=== PATIENT | female | born 1930 | race Caucasian/White ===

== ENCOUNTER 2016-05-03 08:42 | Inpatient (IN) | payer MEDICARE, OTHER ==
[2016-05-03] VITALS (8 sets, daily range): BP systolic 113–200; BP diastolic 40–76
[~2016-05-03] VITALS: Ht 170.2 cm; Wt 83.9 kg
--- NOTE | ~2016-05-03 | DS ---
[place], [place] DISCHARGE SUMMARY NAME: WILMA DIAZ [facility] #: [id number] UNIT #: [id number] ROOM: 524 DOCTOR: BRENDON SOLER MD BIRTHDATE: [birth year] DOS: 05/08/2016 DIAGNOSES: 1. Sepsis with negative blood cultures. 2. Bilateral upper lobe pneumonia, postobstructive. 3. Tracheomalacia status post bronchoscopy with negative bronchial cultures. 4. Urinary tract infection with Escherichia coli. 5. Failure to thrive. 6. Benign hypertension. 7. Mixed hyperlipidemia. 8. Alzheimer dementia, late onset. 9. Frailty with multiple falls and history of subdural hematoma. DISCHARGE MEDICATIONS: Will be Levaquin 500 mg daily for 7 days, breathing treatments with DuoNeb q.4 hours, Aricept 23 mg at bedtime, lisinopril 10 daily, diclofenac 50 mg daily, Namenda XR 28 mg daily, hydrochlorothiazide 12.5 mg daily, guaifenesin 600 mg b.i.d., metformin 500 mg daily, vitamin D 3000 units daily, B12 500 mcg daily, Ceftin 250 twice a day for 7 days, and Levaquin 500 mg daily for 7 days. HOSPITAL COURSE: This patient is an 85-year-old comes in with complaints of difficulty breathing. After admission, the patient was placed on IV antibiotics, breathing treatments. She was septic. Blood cultures were sent. A CT of the chest showed postobstructive pneumonia and tracheomalacia at that time, Dr. Graham was consulted and the patient was scheduled for a bronchoscopy. Bronch cultures so far have come back negative. The patient is much improved with her current treatment plan. She still has bronchospasm, it should resolve slowly. We should be quite careful in giving this patient, hydrochlorothiazide, metformin, and diclofenac, which are all nephrotoxic meds and so please check her basic metabolic panel every 3 months to make sure that her kidney functions are not deteriorating. Right now, she is going to be placed on antibiotics. Chest x-ray shows complete clearing of the pneumonia and the sputum cultures are negative. Urine culture showed bacterial overgrowth of E. coli and for which the patient is on appropriate antibiotics. The patient is overall stable, so the plan is to discharge her to the halfway today. [place], [place] DISCHARGE SUMMARY NAME: WILMA DIAZ UNIT #: [id number] ROOM: 524 DOCTOR: BRENDON SOLER MD BIRTHDATE: [birth year] BRENDON SOLER MD CM:LAN [phone] BRENDON SOLER MD 05/08/16 0957 interface
--- NOTE | ~2016-05-03 | PR ---
[place], [place] PROGRESS NOTE NAME: WILMA DIAZ [facility] #: [id number] UNIT #: [id number] ROOM: 524 DOCTOR: ROSI CLAY MD,RUBY BIRTHDATE: [birth year] DOS: 05/08/2016 PULMONARY PROGRESS NOTE SUBJECTIVE: The patient was seen and examined on 05/08/2015, has a bronchoscopy done for the patient couple of days ago, progressive resolution, improvement in the respiratory symptoms were noted. Denied symptoms of chest pain. Currently sitting on the chair comfortably. PHYSICAL EXAMINATION: VITAL SIGNS: Showed normal temperature, respiratory rate 20, heart rate 71, blood pressure of 64/84. The pulse oxygen saturation of the patient noted on room air 97% saturation. HEENT: No acute change. NECK: Supple. CARDIOVASCULAR SYSTEM: S1, S2 is audible. LUNGS: Exam of the lungs for the patient noted without any crackle or rhonchi. Scattered expiratory wheezing. ABDOMEN: Soft, nontender. LABORATORY DATA: Culture of the sputum of the patient noted normal luke. IMPRESSION: 1. The patient with acute tracheobronchitis, suspect acute pneumonia with superimposed mucus plugging for this patient causing atelectasis of the lung as well. 2. Acute exacerbation of bronchial asthma, tracheomalacia gradually improving. PLAN OF TREATMENT: Tapering dose of prednisone, oral antibiotics and the patient could be discharged to the nursing facility for further continued medical management and completion of treatment. The discharge planning was discussed with Dr. Shaye Oates. RUBY ARANDA MD CM:PNTRANS [id number] RUBY CLAY MD 05/09/16 0631 interface
--- NOTE | ~2016-05-03 | PR ---
[place], [place] PROGRESS NOTE NAME[facility] [id number] UNIT #: [id number] ROOM: 524 DOCTOR: ROSI CLAY MD,RUBY BIRTHDATE: [birth year] DOS: 05/06/2016 PULMONARY PROGRESS NOTE SUBJECTIVE: The patient was still noted with severe nonproductive cough which has been noted without any sputum expectoration, noted n.p.o. past midnight. Bronchoscopy planned for today. She has now been noted with symptoms of chest pain, was continued on antibiotics, on the bronchodilator treatments. OBJECTIVE: VITAL SIGNS: Normal temperature, respiratory rate 18, heart rate 66, blood pressure 122/70. Intake is 960, the output was 700 mL, pulse oxygen saturation on 2 L nasal cannula was 94% saturation. HEENT: Age-related changes with moderate obesity. NECK: Supple. CARDIOVASCULAR SYSTEM: S1, S2 audible. LUNGS: Exam of the lungs for this patient noted with moderate decreased breath sounds without any wheeze or crackles. ABDOMEN: Soft, nontender. IMPRESSION: 1. Acute tracheobronchitis with perihilar infiltration. 2. Acute bacterial pneumonia suspected with the tracheobronchitis. PLAN: For this patient, proceed with the bronchoscopy as planned. Further changes or modification of treatment if necessary will be ordered after bronchoscopy. PT/PTT for this patient that were done yesterday was noted normal. RUBY ARANDA MD CM:PNTRANS [id number] RUBY CLAY MD 06/13/16 1100 interface
--- NOTE | ~2016-05-03 | WRIGHTHP ---
[place], [place] PATIENT HISTORY AND PHYSICAL EXAM NAME: WILMA DIAZ [facility] #: [id number] UNIT #: [id number] ROOM: 524 DOCTOR: BRENDON SOLER MD BIRTHDATE: [birth year] DOS: HISTORY OF PRESENT ILLNESS: This patient is 85 years old. The patient is a resident of [facility], was brought in with cough. The patient has been on antibiotics as an outpatient and was not getting any better, oxygen saturation was running low, was sent out upon daughter's request. The patient states that she has a terrible cough, but is unable to cough up any mucus, has mild shortness of breath. Denies having any chest pains or palpitations, does not have any fever or chills. PAST MEDICAL HISTORY: Significant for: 1. Last hospitalization in 06/2015 with renal failure. 2. Benign hypertension. 3. Mixed hyperlipidemia. 4. Alzheimer dementia, late onset. 5. History of frailty with multiple falls and subdural hematoma in the past. MEDICATIONS: Which she is on are breathing treatments, penicillin which was started on 05/02/2016, vitamin D, vitamin B12, Arthrotec, donepezil, guaifenesin, hydrochlorothiazide, lisinopril, loratadine, Namenda, and metformin. SOCIAL HISTORY: Nonsmoker, does not use any alcohol. She has been in a prison for about 6 months since 06/2015. PHYSICAL EXAMINATION: GENERAL: The patient is awake and alert, oriented to place and person. VITAL SIGNS: Graphic trend shows that she is afebrile. Pressure is 124/59, pulse of 58, respirations 18, temperature 97.6. LUNGS: Diminished breath sounds, scattered rhonchi. HEART: Regular. ABDOMEN: Obese, soft. EXTREMITIES: Showing some evidence of lymphedema. ASSESSMENT AND PLAN: 1. The patient who presents with cough, diagnosis asmatoid wheeze. The patient is placed on IV steroids, breathing treatments and IV antibiotics. CT of the chest will be ordered to rule out underlying pneumonia. 2. Benign hypertension, controlled. The patient's hydrochlorothiazide will be held because of underlying renal insufficiency. 3. Sepsis with lactic acid elevation. Blood cultures and sputum cultures were sent, awaiting report. 4. Type 2 diabetes mellitus, noninsulin dependent, on metformin. BUN and creatinine is already on the high side, we will need to continue to see whether this worsens any further. If it does then we will have to discontinue metformin. Right now, metformin and ADA diet, and blood sugars to be checked twice daily. 5. Positive nitrite and leukocyte esterase in the urine. Urine culture was sent in the ER, awaiting results. Adjustments in antibiotics pending on the results. [place], [place] PATIENT HISTORY AND PHYSICAL EXAM NAME: WILMA DIAZ UNIT #: [id number] ROOM: 524 DOCTOR: BRENDON SOLER MD BIRTHDATE: [birth year] 6. Chronic renal failure, GFR of 40, stage 3 renal failure, should avoid nephrotoxic medications including hydrochlorothiazide and nonsteriodals. BRENDON SOLER MD CM:HISPHYS:PATIENT HISTORY AND PHYSICAL EXAMINATION [id number] BRENDON SOLER MD 06/13/16 1059 interface
--- NOTE | ~2016-05-03 | PR ---
[place], [place] PROGRESS NOTE NAME: WILMA DIAZ UNIT #: [id number] ROOM: 524 DOCTOR: RUBY PARKER MD BIRTHDATE: [birth year] DOS: 05/07/2016 PULMONARY FOLLOWUP NOTE SUBJECTIVE: She had bronchoscopy done yesterday, has been noted with significant reduction in symptoms of cough, which has been previously noted. She denies symptoms of chest pain. Denies symptoms of abdominal pain, shortness of breath and wheezing was also noted decreased. OBJECTIVE: VITAL SIGNS: Show normal temperature, respiratory rate 20, heart rate 107, blood pressure 122/70 this morning recorded. The pulse oxygen saturation on room air was 95% saturation. HEENT: Showed no acute change. NECK: Supple. CARDIOVASCULAR: S1, S2 is audible. LUNGS: Noted moderate reduction in the breath sounds bilaterally with occasional wheezing. There were no crackles. ABDOMEN: Soft, nontender. LABORATORY DATA: Gram stain of the bronchial washing yesterday shows moderate white blood cells, few epithelial cells, few gram-negative bacilli and few gram-positive cocci in pairs and clusters. Preliminary culture showing normal luke and final culture results were pending. Chest x-ray 1 view which was done this morning shows improvement in the infiltration of the lungs. IMPRESSION: The patient with area of atelectasis secondary to mucous impaction with acute asthmatic bronchitis for the patient and tracheobronchitis with retained secretion of the major airways. PLAN OF TREATMENT: No changes in plan of management at this time. Continue the patient's current therapy. Plan of care as previously. Usual care, other supportive plan of management and care. All other treatment as in progress. [place], [place] PROGRESS NOTE NAME: WILMA DIAZ UNIT #: [id number] ROOM: 524 DOCTOR: RUBY PARKER MD BIRTHDATE: [birth year] RUBY ARANDA MD CM:PNTRANS [phone] [id number] RUBY CLAY MD 05/07/162157 interface
--- NOTE | ~2016-05-03 | PROC NOTE ---
[place], [place] PROCEDURE NOTE NAME: WILMA DIAZ UNIT #: [id number] ROOM: 524 DOCTOR: RUBY PARKER MD BIRTHDATE: [birth year] DOS: 05/06/2016 PREOPERATIVE DIAGNOSIS: The patient with persistent coughing with perihilar infiltration. POSTOPERATIVE DIAGNOSES: 1. Severe acute tracheobronchitis noted. Findings consistent with acute pneumonia, especially in the left upper lobe. 2. Findings of tracheomalacia. PROCEDURE DESCRIPTION: Informed consent obtained for the patient's family members. The patient brought to the OR and placed in a supine position. Conscious sedation administered by the Anesthesia Department. After achieving appropriate sedation, airway introduced into the mouth. Bronchoscope advanced into the airway into laryngeal area. Epiglottis and vocal cords were seen. Bronchoscope advanced to the vocal cords into the tracheal lumen. The tracheal lumen was noted with findings of tracheomalacia. Moderate thick mucopurulent secretions suctioned out at the berta level. Berta was assessed. Right upper, right middle, right lower lobe opening shows small amount of mucus impaction with clear evident endobronchial tree. The patient noted significant purulent secretion, mucus impaction, left upper lobe bronchi, which was suctioned out with the help of normal saline wash. Very friable mucosa noted. Trachea and bronchi consistent with finding of severe acute ongoing tracheobronchitis. Procedure well tolerated by the patient in general. Postoperative findings were discussed with the patient's family members. No change in treatment at this time will be needed. Monitoring culture results. RUBY ARANDA MD CM:PROCNOTE:PROCEDURE NOTE [id number] RUBY CLAY MD
--- NOTE | ~2016-05-03 | PR ---
[place], [place] PROGRESS NOTE NAME: WILMA DIAZ [facility] #: [id number] UNIT #: [id number] ROOM: 524 DOCTOR: BRENDON SOLER MD BIRTHDATE: [birth year] DOS: 05/05/2016 SUBJECTIVE: The patient is about the same, does not have any new changes. She is sitting up in her bed, eating breakfast. She has audible wheezes even though as per the patient and the family, her cough and breathing have considerably improved since admission. OBJECTIVE: VITAL SIGNS: Blood pressure is 150/80, pulse 69, respirations 18, temperature 97.9. LUNGS: Diminished breath sounds, scattered wheezes and rhonchi. HEART: Regular. ABDOMEN: Obese, soft. EXTREMITIES: Without any edema. CT of the chest shows tracheomalacia, bilateral upper lobe pneumonia, postobstructive secondary to tracheobronchomalacia. Urinary tract infection with E. coli resistant to Floxin. ASSESSMENT AND PLAN: 1. The patient presents with cough and shortness of breath with underlying bilateral upper lobe pneumonia, postobstructive. The patient is on IV antibiotics and IV steroids. 2. Tracheomalacia. We will ask Dr. Graham for an opinion. The patient may benefit from bronchoscopy and tracheal aspiration. 3. Sepsis with lactic acid elevation. Blood cultures so far have not showing any bacterial growth. Urine culture is showing Escherichia coli. Appropriate antibiotics have been started. 4. Failure to thrive. The patient should be [facility] when more stable. BRENDON SOLER MD CM:PNTRANS [phone] BRENDON SOLER MD 05/06/16 0308 interface
--- NOTE | ~2016-05-03 | PR ---
[place], [place] PROGRESS NOTE [id number] UNIT #: [id number] ROOM: 524 DOCTOR: BRENDON SOLER MD BIRTHDATE: [birth year] DOS: 05/07/2016 SUBJECTIVE: The patient is sitting up in her chair. She seems improved since admission. No audible wheezes heard. VITAL SIGNS: Blood pressure is 134/77, pulse of 78, respirations 18, temperature 97.4. LUNGS: Diminished breath sounds, a few scattered wheezes heard bilaterally. HEART: Regular. ABDOMEN: Obese, soft. EXTREMITIES: Without any edema. LABORATORY DATA: Blood culture shows no bacterial growth. Bronch cultures preliminary is normal luke. We do not have the final report yet. ASSESSMENT AND PLAN: 1. Bilateral upper lobe pneumonia postobstructive on IV antibiotics. Repeat chest x-ray will be ordered to see whether there is any clearing. 2. Urinary tract infection with Escherichia coli, on Rocephin. 3. Tracheomalacia, status post bronchoscopy with bronch cultures showing no bacterial growth. The plan will be to discharge her back to the prison in the morning once the cultures become final. BRENDON SOLER MD CM:PNTRANS [id number] BRENDON SOLER MD 05/07/16 1011 interface
--- NOTE | ~2016-05-03 | CON ---
[place], [place] REPORT OF CONSULTATION NAME[id number] UN[facility] #: [id number] ROOM: 524 DOCTOR: RUBY PARKER MD BIRTHDATE: [birth year] DOS: 05/05/2016 PULMONARY CONSULTATION, EVALUATION AND MANAGEMENT REASON FOR CONSULTATION: Assess the patient's persistent cough. HISTORY OF PRESENT ILLNESS: This is an 85-year-old white female unknown to me, has been admitted from [facility] under care of Dr. Shaye Oates. The patient has developed progressive increased chest congestion at the nursing facility. The patient has not been responding to treatment and was admitted to the hospital for further medical management. She has been noted severe chest congestion with some sputum expectoration at time. She has expectorated some sputum, and the coughing has been decreased as per daughter, but the symptoms had not been completely resolved. She was also noted with low oxygen saturation on admission. She has been known with a history of dementia, not able to give me any history. She has been assessed significantly by the patient's daughter and son who was present in the room with the patient at the time of the assessment. She has not been noted any symptoms of hemoptysis or chest pain as per daughter. REVIEW OF SYSTEMS: Cannot be completely done for this patient because of the patient's history of Alzheimer disease; however, the patient has not reported any symptoms of syncopal episode, headache, diplopia, urinary incontinence, hematuria, abdominal pain, nausea, vomiting, diarrhea, abdominal weight loss history, any joint pain, skin lesions, palpitations, epistaxis, or blurred vision. PAST MEDICAL HISTORY: The patient was noted with history of: 1. Essential hypertension. 2. Mixed hyperlipidemia. 3. History of Alzheimer dementia. 4. History of past recurrent falls and subdural hematoma history. 5. Chronic kidney disease for this patient, stage 2 to stage 3. SOCIAL HISTORY: The patient is currently , lives at a detention. She has not been noted history of tobacco use, has 2 children. There was no history of alcohol use or illicit drug use described. FAMILY HISTORY: Unknown. PAST SURGICAL HISTORY: 1. Noted history of bilateral carpal tunnel release. 2. Hysterectomy. 3. Appendectomy. 4. Cholecystectomy. 5. Bilateral hip replacement. MEDICATIONS: The current administered medication for the patient noted on this admission was use of IV Solu-Medrol, sliding scale insulin coverage, Pulmicort Respules, Namenda, lisinopril, Aricept, diclofenac, metformin, albuterol, [place], [place] REPORT OF CONSULTATION NAME: WILMA DIAZ UNIT #: [id number] ROOM: 524 DOCTOR: ROSI CLAY MD,RUBY BIRTHDATE: [birth year] Levaquin and Rocephin. DRUG ALLERGY HISTORY: Noted for no known drug allergies. PHYSICAL EXAMINATION: GENERAL: An 85-year-old female who has been currently noted awake and alert without any distress, noted some hard of hearing, able to understand some commands. The height was noted 5 feet 7 inches for the patient. Weight of 185 pounds, BMI 29. VITAL SIGNS: The patient shows a normal temperature, respiratory rate of 10-20, heart rate of 92-52. Blood pressure 150/80-141/53. HEENT: Head is atraumatic. Eyes, anicterus. NECK: Supple. CARDIOVASCULAR SYSTEM: S1, S2 audible. LUNGS: For this patient noted with moderate reduced breath sounds with scattered expiratory wheezing, no crackles. ABDOMEN: Soft, nontender, bowel sounds present. EXTREMITIES: Showed no edema, clubbing or cyanosis. LABORATORY DATA: The patient's lactic acid 2.2 on May 03, followup lactic acid was normal on May 03. CBC of the patient on May 03 was noted with essentially normal CBC. CMP of the patient on May 03, BUN 31, creatinine 1.26, glucose 136. Remaining electrolytes for the patient were normal. PT/PTT for the patient, which were done this morning were normal. Urine culture shows greater than 100,000 colony forming units of E. coli. Chest x-ray, 1 view for the patient, which was done on admission was reviewed on May 03 for this patient shows areas of atelectasis and/or infiltration of the lower lungs. CT scan of the chest for the patient, which was done for this patient was personally reviewed. The CT scan was done without contrast that lacks the complete assessment of the mediastinum; however, the cross review for this patient does not show any major lymph node enlargement. Small lymph node for the patient was visible. The parenchymal view for this patient was noted as patchy infiltration, which was noted with ground glass opacity which has been present in the lungs bilaterally including the perihilar distribution. IMPRESSION: 1. The patient who has been currently admitted to the hospital noted with current interstitial and ground glass opacity with possibility of acute pneumonia for this patient and/or atelectasis will be considered with retained secretions of the airways, inability to expectorate sputum. 2. Finding of possibility of tracheomalacia was also observed for this patient, which may be alergy related on the CT scan of the chest. There was no significant pathological lymphadenopathy of the mediastinum area was visible. 3. Mild obesity as well. 4. Past history of dementia. PLAN OF TREATMENT: The bronchoscopy planned to be done in the morning to help clear secretions. This will also help to accurately isolate any bacterial organisms, which may require any prolonged treatment for the patient after discharge from the hospital since the patient failed outpatient treatment. [place], [place] REPORT OF CONSULTATION NAME: WILMA DIAZ UNIT #: [id number] ROOM: 524 DOCTOR: RUBY PARKER MD BIRTHDATE: [birth year] other supportive therapy, plan of management. Continue Solu-Medrol for the patient for medical management of acute asthmatic bronchitis management with the use of bronchodilators as well. Usual care. The procedure for this patient and bronchoscopy has been discussed with the patient's family members, and they are agreeable to give the consent for the procedure after discussing the risks and the benefits. The procedure was scheduled to be done in the morning. Thanks for allowing me to participate in the care of this patient. RUBY ARANDA MD CM:CONSTR:REPORT OF CONSULTATION 1428 06/13/16 1105 interface
--- NOTE | ~2016-05-03 | PR ---
[place], [place] PROGRESS NOTE [id number] UNIT #: [id number] ROOM: 524 DOCTOR: BRENDON SOLER MD BIRTHDATE: [birth year] DOS: SUBJECTIVE: The patient is feeling fine without any complaints. Denies any chest pains or palpitations. Cough and shortness of breath have improved. OBJECTIVE: VITAL SIGNS: Pressure is 164/84, pulse of 71, respirations 20, temperature 97.5. LUNGS: Diminished breath sounds, scattered rhonchi. HEART: Regular. ABDOMEN: Soft. EXTREMITIES: Without any edema. LABORATORY DATA: Routine cultures of the bronch came back completely negative. Chest x-ray shows normal chest. ASSESSMENT AND PLAN: 1. Postobstructive pneumonia from tracheomalacia, status post bronchoscopy. Bronch cultures negative. 2. Sepsis with lactic acidosis. Sepsis has been ruled out with negative cultures. Blood cultures are negative. 3. Failure to thrive. The patient to go back to [facility] today. BRENDON SOLER MD CM:PNTRANS [phone] BRENDON SOLER MD 06/13/16 1101 interface
[~2016-05-03 08:42] MED LIST: ARTHROTEC50 MG PO; B12,B-12,B 12500 MC1 PO; DONEPEZIL HYDRO23 M1 PO; DUONEB 3 MG/3 ML3 M1 INH; HYDR25T PO; LIPITOR10 MG PO; LISINOPRIL10 M1 PO; LISINOPRIL5 MG PO; METFORMIN500 MG PO; MICROZIDE12.5 M1 PO; NAMENDA-21 PO; NAMENDA-28 PO; NORCO 5-325 TA1 EACH PO; Nystatin Ointme30 GM T; PREDNISONE10 MG PO; ROBAFEN100 MG/51 PO
[2016-05-03] MEDS ORDERED: VITAMIN D33000 UNIT PO (09:14)
[2016-05-03] MEDS ORDERED: VITAMIN B-12250 MCG PO (09:15)
[2016-05-03] MEDS ORDERED: DUONEB 3 MG/3 ML3 M1 INH (09:17)
[2016-05-03] MEDS ORDERED: CLARITIN10 MG PO (09:17)
[2016-05-03] MEDS ORDERED: AMOXICILLIN500 M2 PO (09:18)
[2016-05-03] MEDS ORDERED: ADULT TUSS100 MG/5 M PO (09:19)
[2016-05-03 09:33] LABS: BASO % 0.4 % (0.0-1.0); EOS % 0.1 % (1.0-4.0); HEMATOCRIT 38.5 % (37.0-47.0); HEMOGLOBIN 12.4 g/dl (12.0-16.0); IG # 0.1 10*3/uL (0.0-0.1); LYMPH # 0.7 10*3/uL (1.3-4.4); LYMPH % 10.9 % (27.0-41.0); MEAN CELL VOLUME 94.1 fl (81.0-99.0); MEAN CORPUSCULAR HGB 30.3 pg (27.0-31.0); MEAN CORPUSCULAR HGB CONC 32.2 g/dl (33.0-37.0); MEAN PLATELET VOLUME 10.4 fl (9.6-12.3); MONO # 0.9 10*3/uL (0.1-1.0); MONO % 13.8 % (3.0-9.0); NEUT # 4.9 10*3/uL (2.3-7.9); NEUT % 72.9 % (47.0-73.0); PLATELET COUNT AUTOMATED 218 10*3/uL (130-400); RED BLOOD COUNT 4.09 10*6/uL (4.10-5.10); RED CELL DISTRI WIDTH 14.5 % (0-14.5); WHITE BLOOD COUNT 6.8 10*3/uL (4.8-10.8)
[2016-05-03 09:48] LABS: ALBUMIN 3.3 gm/dl (3.1-4.5); BILIRUBIN, TOTAL 0.3 mg/dl (0.2-1.0); POTASSIUM 4.9 mmol/L (3.5-5.1); TOTAL PROTEIN 7.1 gm/dL (6.4-8.2)
[2016-05-03 11:24] LABS: BILIRUBIN NEGATIVE (NEGATIVE); BLOOD TRACE-INTACT (NEGATIVE); CLARITY CLOUDY (CLEAR); COLOR YELLOW (YELLOW); GLUCOSE NEGATIVE (NEGATIVE); KETONE NEGATIVE (NEGATIVE); LEUKO ESTERASE 1+ (NEGATIVE); NITRITE POSITIVE (NEGATIVE); PH 5.5 (5.0-9.0); PROTEIN NEGATIVE (NEGATIVE); SPECIFIC GRAVITY 1.025 (1.005-1.030); UROBILINOGEN 0.2 E.U./dl (0.2-1.0)
[2016-05-03 11:30] LABS: LA>2 REFLEX 2 HR DRAW NOW
[2016-05-03 11:38] LABS: BACTERIA 2+; EPITHELIAL CELLS 0-2; URINE REFLEX COMMENT YES (NO)
[2016-05-04] VITALS: BP 124/59
[2016-05-04] MEDS ORDERED: ROBAFEN100 MG/51 PO (03:21)
[2016-05-04 08:00] VITALS: BP 116/80
[2016-05-04 16:00] VITALS: BP 138/68
[2016-05-04 20:00] VITALS: BP 122/62
[2016-05-05] VITALS: BP 141/53
[2016-05-05 08:00] VITALS: BP 150/80
[2016-05-05 13:32] LABS: INTERNATIONAL NORM RATIO 0.9 (2.0-3.5); PROTHROMBIN TIME 9.8 SECONDS (9.0-12.4)
[2016-05-05 13:42] LABS: COL/EPI 112 SECONDS (86-157)
[2016-05-05 16:00] VITALS: BP 133/78
[2016-05-06] VITALS (7 sets, daily range): BP systolic 119–145; BP diastolic 50–98
[2016-05-07] VITALS: BP 134/77
[2016-05-07 08:00] VITALS: BP 122/70
[2016-05-07 12:00] VITALS: BP 164/72
[2016-05-07 16:00] VITALS: BP 138/81
[2016-05-07 20:00] VITALS: BP 129/76
[2016-05-08] VITALS: BP 134/64
[2016-05-08 08:00] VITALS: BP 164/84
[2016-05-08] MEDS ORDERED: LEVOFLOXACIN500 MG PO (08:47)
[2016-05-08] MEDS ORDERED: CEFUROXIME AXE250 MG PO (08:47)
[2016-05-08 15:08] LABS: ACID FAST SPEC PROCESSING Concentration (.)
== END 2016-05-08 11:10 | disposition other institution (70) | DRG 871 ==
LOC: ED 08:42 → 5E 12:07 → EDHOLD 12:07 → 5E 12:57
PROVIDERS: Internal Medicine Critical Care Medicine; Registered Nurse
PROC: 0BC38ZZ Extirpation of Matter from Right Main Bronchus, Via Natural or Artificial Opening Endoscopic (ICD-10-PCS; principal; 2016-05-06)
PROC: 0BC78ZZ Extirpation of Matter from Left Main Bronchus, Via Natural or Artificial Opening Endoscopic (ICD-10-PCS; principal; 2016-05-06)
PROC: 0BC18ZZ Extirpation of Matter from Trachea, Via Natural or Artificial Opening Endoscopic (ICD-10-PCS; principal; 2016-05-06)
PROC: 0BC88ZZ Extirpation of Matter from Left Upper Lobe Bronchus, Via Natural or Artificial Opening Endoscopic (ICD-10-PCS; principal; 2016-05-06)
PROC: 0BC58ZZ Extirpation of Matter from Right Middle Lobe Bronchus, Via Natural or Artificial Opening Endoscopic (ICD-10-PCS; principal; 2016-05-06)
PROC: 0BC48ZZ Extirpation of Matter from Right Upper Lobe Bronchus, Via Natural or Artificial Opening Endoscopic (ICD-10-PCS; principal; 2016-05-06)
PROC: 0BC98ZZ Extirpation of Matter from Lingula Bronchus, Via Natural or Artificial Opening Endoscopic (ICD-10-PCS; principal; 2016-05-06)
PROC: 0BCB8ZZ Extirpation of Matter from Left Lower Lobe Bronchus, Via Natural or Artificial Opening Endoscopic (ICD-10-PCS; principal; 2016-05-06)
PROC: 0BC68ZZ Extirpation of Matter from Right Lower Lobe Bronchus, Via Natural or Artificial Opening Endoscopic (ICD-10-PCS; principal; 2016-05-06)
DX: A41.9 Sepsis, unspecified organism (principal); J18.9 Pneumonia, unspecified organism; N39.0 Urinary tract infection, site not specified; G30.1 Alzheimer's disease with late onset; E11.22 Type 2 diabetes mellitus with diabetic chronic kidney disease; N18.3 Chronic kidney disease, stage 3 (moderate); F02.80 Dementia in other diseases classified elsewhere, unspecified severity, without behavioral disturbance, psychotic disturbance, mood disturbance, and anxiety; J45.901 Unspecified asthma with (acute) exacerbation; B96.20 Unspecified Escherichia coli [E. coli] as the cause of diseases classified elsewhere; E78.2 Mixed hyperlipidemia; Z96.643 Presence of artificial hip joint, bilateral; R62.7 Adult failure to thrive; J39.8 Other specified diseases of upper respiratory tract; I12.9 Hypertensive chronic kidney disease with stage 1 through stage 4 chronic kidney disease, or unspecified chronic kidney disease; J20.9 Acute bronchitis, unspecified; E66.9 Obesity, unspecified; Z90.49 Acquired absence of other specified parts of digestive tract; Z68.30 Body mass index [BMI] 30.0-30.9, adult; Z90.710 Acquired absence of both cervix and uterus; Z98.890 Other specified postprocedural states; Z82.49 Family history of ischemic heart disease and other diseases of the circulatory system; Z82.0 Family history of epilepsy and other diseases of the nervous system; Z80.9 Family history of malignant neoplasm, unspecified; Z79.899 Other long term (current) drug therapy

== ENCOUNTER 2017-09-05 22:28 | Inpatient (IN) | payer MEDICARE, OTHER, MEDICAID ==
[~2017-09-05] VITALS: Ht 172.7 cm; Wt 89.4 kg
--- NOTE | ~2017-09-05 | PR ---
[place], [place] PROGRESS NOTE [id number] UNIT #: [id number] ROOM: [place] [address] DOCTOR: HALLE CROWE MD BIRTHDATE: [birth year] DOS: SUBJECTIVE: The patient is much better. She is pleasantly confused, still quite weak, but extubated and off mechanical ventilation. OBJECTIVE: VITAL SIGNS: Blood pressure 120/56, heart rate of 71 beats per minute, breathing normally, afebrile. GENERAL APPEARANCE: The patient is alert and oriented x 3, in no visible distress, except for generalized weakness and obesity. HEENT AND NECK: Exam within normal limits. CARDIOVASCULAR SYSTEM: Heart rate is regular in rate and rhythm. S1 and S2 normally audible. LUNGS: Clear to auscultation. ABDOMEN: Soft, nontender. No obvious organomegaly. Bowel sounds are present. EXTREMITIES: Without significant cyanosis or edema. IMPRESSION: 1. Adult failure to thrive and obesity. The patient to be started on physical therapy. 2. The patient is status post incarcerated right inguinal hernia repair, doing well. Dr. Cook is following. 3. Late onset Alzheimer's type dementia, being treated with memantine and Aricept. 4. Type 2 diabetes mellitus. The patient's blood sugars are reasonably controlled. 5. Chronic constipation, being treated with MiraLax. The patient has started tolerating clear liquid diet, which was ordered by Surgery. 6. Benign essential hypertension, treated and controlled. HALLE CROWE MD CM:PNTRANS [phone] HALLE CROWE MD 09/08/171950 interface
--- NOTE | ~2017-09-05 | PR ---
[place], [place] PROGRESS NOTE NAME: WILMA DIAZ UNIT #: [id number] ROOM: [place] [address] DOCTOR: RUBY PARKER MD BIRTHDATE: [birth year] DOS: 09/09/2017 SUBJECTIVE: The patient noted comfortable at this time without any acute distress, resting, liberated from mechanical ventilation and is noted fully awake and alert. Started on clear liquid by the surgery staff. She does not show any signs of coughing, sputum expectoration, shortness of breath or any chest pain or hemoptysis. OBJECTIVE: VITAL SIGNS: Blood pressure 132/76, respiratory rate 22, heart rate 72, temperature 99 degree Fahrenheit. Pulse oxygen saturation of the patient recorded on 2 liters per nasal cannula 97% saturation. HEENT: Examination shows fdew-fs-bervstxf obesity. Head was atraumatic. Eyes nonicterus. NECK: Supple. CARDIOVASCULAR: S1, S2 is audible. LUNGS: Clear. ABDOMEN: Soft and nontender. Bowel sounds present. EXTREMITIES: Without any acute edema. Chronic ifux-sw-iriaccrt obesity finding. LABORATORY DATA: BMP this morning, normal BUN and creatinine. CBC this morning, WBC count 12.1, hemoglobin 11.3, and platelet count normal. IMPRESSION: 1. The patient with acute postoperative hypoxic and hypercapnic respiratory failure, status post successful liberation of mechanical ventilation last 24 hours. 2. Incarcerated inguinal hernia repair. PLAN OF MANAGEMENT: No changes in the plan of therapy at this time. Continue current plan of management as previously. Usual care. All other supportive plan of therapies and treatments. [place], [place] PROGRESS NOTE NAME: WILMA DIAZ UNIT #: [id number] ROOM: [place] [address] DOCTOR: RUBY PARKER MD BIRTHDATE: [birth year] RUBY ARANDA MD CM:PNTRANS [id number] RUBY CLAY MD 09/09/17 1609 interface
--- NOTE | ~2017-09-05 | CON ---
[place], [place] REPORT OF CONSULTATION NAME[id number] UNIT #: [id number] ROOM: [place] [address] DOCTOR: ROSI CLAY MD,RUBY BIRTHDATE: [birth year] DOS: 09/08/2017 PULMONARY CONSULTATION CRITICAL CARE EVALUATION AND MANAGEMENT REASON FOR CONSULTATION: To assess the patient's current acute postoperative respiratory failure. HISTORY OF PRESENT ILLNESS: This is a white female patient presented to the hospital as the patient has been developing increased swelling in the right inguinal area. The patient's symptoms have been noted progressively worsened. The patient resides at the nursing facility. She was also reported discoloration of the skin that prompted for assessment in the hospital. She was sent to the Emergency Room. The patient has been assessed by the Surgery staff. The patient noted with finding consistent clinically for incarcerated right inguinal hernia. The patient was intubated for the medical management of current incarcerated hernia repair, surgery was done by Dr. Cook. Postoperatively, the patient was noted with hypoxia with persistent decreased consciousness. She would not be liberated from mechanical ventilator. The patient was sent to the Intensive Care Unit where she had been admitted for the last 48 hours. She has been given a trial of CPAP would be suggested for potential liberation of mechanical ventilator. She was noted with evidence of persistent respiratory and some metabolic acidosis. The patient has been continued assist control, volume control, mechanical ventilation last 24 hours. Sedation has been discontinued this morning again as she has been just started on CPAP more of mechanical ventilation. CPAP 5, pressure support of 10. The patient seemed to be tolerating that with tidal volume about 450-500 mL with a respiratory rate of 18-20. She has not been noted any respiratory distress. Opens her eyes, follows vocal commands by giving small nodding her head to some extent. However, the remaining history could not be obtained. All the history of the patient containing the remaining documents is reviewed at the medical record documentation by the primary care physician note and the other notes. PAST MEDICAL HISTORY: 1. The patient was known with history of essential hypertension. 2. History of Alzheimer's dementia. 3. Previous history of fall, which is noted recurrent with subdural hematoma by history. 4. Mixed hyperlipidemia. 5. Chronic kidney disease stage 2. 6. Zdmt-dk-wwqnmjhc obesity. PAST SURGICAL HISTORY: 1. Noted with incarcerated right inguinal hernia repair that was done on 09/06/2017. 2. Bilateral carpal tunnel release. 3. Hysterectomy. 4. Appendectomy. 5. Cholecystectomy. 6. Benign bilateral hip replacement. [place], [place] REPORT OF CONSULTATION NAME: WILMA DIAZ UNIT #: [id number] ROOM: [place] [address] DOCTOR: ROSI CLAY MD,RUBY BIRTHDATE: [birth year] FAMILY HISTORY: Unknown. SOCIAL HISTORY: The patient currently , resident of a senior living, has 2 children. Denies alcohol use or illicit drug use. CURRENT MEDICATIONS: The current medication administered were noted as use of IV Versed, IV Zosyn and propofol. The patient was also getting sliding scale insulin coverage. DRUG ALLERGY HISTORY: The patient noted as no known drug allergies. PHYSICAL EXAMINATION: GENERAL: An 87-year-old female who has been noted currently awake and alert without any distress, currently intubated endotracheal tube orally. Height of 5 feet 8 inches, weight 178 pounds, BMI 29.9. VITAL SIGNS: Normal temperature in the last 48 hours, respiratory rate 12-14. Heart rate was noted as 46-50 beats per minute in the last 24 hours. The blood pressure ranging between 157/57-142/50 this morning. The intake for the patient is 1200, output is about approximately 500 mL. Pulse ox saturation 35% oxygen supplementation with assist control, volume control later on the CPAP was 96%-97% saturation. HEENT: The patient currently orally intubated. Head was atraumatic. NECK: Supple. CARDIOVASCULAR SYSTEM: S1, S2 is audible. LUNGS: Noted clear to auscultation bilaterally. There were no crackles heard. ABDOMEN: Noted status post-surgery with mild obesity. Bowel sounds present without any tenderness. CENTRAL NERVOUS SYSTEM: The patient does move her extremities with her own will. Further examination could not be performed. SKIN: Visible skin no lesions or rashes. LABORATORY DATA: The chest x-ray that was done yesterday shows mild elevation of the right hemidiaphragm was noted without any evidence of acute pulmonary infiltration. Endotracheal tube was noted appropriately placed. The NG tube was noted with the gas in the stomach. The CBC that was done on 09/05/2017, WBC count 12,000, remaining CBC normal. CMP done on 09/05/2017 in the Emergency Room BUN 39, creatinine 1.31. The CBC done on 09/06/2017 was normal. CBC done on 09/07/2017, WBC count 14.9, hemoglobin 11.8, hematocrit 36.5, platelet count 260,000. CMP of the patient that was done on 09/07/2017, BUN 26, creatinine was normal at that time. Glucose 144. The arterial blood gas which was done first set of blood gas, pH of 7.27, pCO2 of 50, pO2 of 152 post-surgery in the Intensive Care Unit 2 hours later. This was done on 100% oxygen supplementation, tidal volume 550 mL. The arterial blood gas that was done on 09/08/2017 was noted pH of 7.39, pCO2 of 39, pO2 of 82, 35% oxygen assist control mode mechanical ventilation. Arterial blood gas that was done yesterday morning, assist control pH of 7.39, pCO2 of 36, pO2 of 151 with 50% oxygen. Arterial blood gas post 2 hours surgery with CPAP of 5, pressure support of 10, pH 7.32, pCO2 of 45.9, pO2 of 90.8. IMPRESSION: [place], [place] REPORT OF CONSULTATION NAME: WILMA DIAZ UNIT #: [id number] ROOM: [place] [address] DOCTOR: ROSI CLAY [facility] BIRTHDATE: [birth year] 1. The patient has been noted with current acute postoperative respiratory failure secondary to acute acidosis and hypercarbia. 2. Status post right inguinal hernia repair, which was incarcerated. Some area of the atelectasis in the right lower lobe cannot be excluded. 3. History of essential hypertension as well as dementia and acute kidney injury secondary to intravascular volume depletion noted on admission seemed to be noted with normal kidney function yesterday. PLAN OF MANAGEMENT: Another trial of CPAP of 5, pressure support of 10 to be given for continuation of 2 hours today. After that, the patient might be liberated from mechanical ventilator. Follow the code direction for the advanced directive for the patient as previously noted in place. The patient will be started on the Lovenox for DVT prophylaxis. Other supportive therapy, plan of management care and treatment as well. Additional treatment changes to be made for this patient based on the progression of the illness. Bronchodilator will be added for the patient to the treatment to help mobilize secretions as well. If the patient does not get liberated from mechanical ventilator, additional ventilator bundle management will be ordered accordingly ____ for preference by the Surgery staff post-incarcerated hernia repair. Monitoring any abdominal culture results as well. Nutritional support ordered per Surgery staff to be done as well. Total time for pulmonary critical evaluation and management was 40 minutes. RUBY ARANDA MD CM:CONSTR:REPORT OF CONSULTATION 1158 09/09/17 0125 interface
--- NOTE | ~2017-09-05 | DS ---
[place], [place] DISCHARGE SUMMARY NAME: WILMA DIAZ [facility] #: [id number] UNIT #: [id number] ROOM: 420 DOCTOR: HALLE CROWE MD BIRTHDATE: [birth year] DOS: 09/11/2017 DISCHARGE DIAGNOSES: 1. The patient is status post repair of incarcerated right inguinal hernia repair, doing well. 2. Post-surgical intubation and mechanical ventilation for postsurgical respiratory failure. 3. Chronic constipation. 4. Morbid obesity. 5. Adult failure to thrive with generalized weakness. 6. Late onset Alzheimer's type dementia with some mental confusion. 7. Benign essential hypertension. HOSPITAL COURSE: The patient was admitted with a growing size of her right inguinal hernia and changing colors. The patient was admitted and seen by Dr. Cook, the surgeon who took her and operated on her for incarcerated right inguinal hernia. Following surgery, the patient remained intubated and on mechanical ventilation and she was put into ICU and finally extubated and put on a step-down unit. The patient was followed by dismantler, Dr. Graham and has been cleared for discharge back to long-term now. The patient is eating and tolerating diet and moving her bowels. 1. Benign essential hypertension, treated and controlled. 2. Late onset Alzheimer's type dementia and some mental confusion. The patient remains on Aricept. 3. Type 2 diabetes mellitus. Blood sugars being monitored and treated, followed. The patient to be kept on no concentrated sweet diet. 4. Adult failure to thrive and obesity, generalized weakness. We took bedsore precautions. The patient worked with physical therapy. 5. Chronic constipation, treated and controlled with MiraLax. The patient moving her bowels. 6. Normal serum electrolytes, bilirubin, liver enzymes. Discharge hemoglobin 11.3, normal platelets. DISCHARGE MANAGEMENT: DuoNeb q.i.d. p.r.n. for shortness of breath, Lovenox 40 mg subcutaneous daily for 10 days, then to be stopped. Check CBC and a basic metabolic profile on Friday. Vitamin D 2000 units daily, vitamin B12 500 mcg daily, give her Exelon 3 mg b.i.d., lisinopril 10 mg daily, memantine 10 mg b.i.d., metformin 500 mg daily, no concentrated sweet diet, MiraLax 17 g daily. [place], [place] DISCHARGE SUMMARY NAME: WILMA DIAZ UNIT #: [id number] ROOM: 420 DOCTOR: HALLE CROWE MD BIRTHDATE: [birth year] HALLE CROWE MD CM:DISCHARG 8 2 HALLE CROWE MD 09/11/1742 interface
--- NOTE | ~2017-09-05 | PR ---
[place], [place] PROGRESS NOTE [id number] UNIT #: [id number] ROOM: 420 DOCTOR: ROSI CLAY MD,RUBY BIRTHDATE: [birth year] DOS: 09/11/2017 SUBJECTIVE: She has been noted quite comfortable, resting on the bed. She has not been reported any symptoms of coughing, sputum expectoration or any chest pain. Denies any abdominal pain. Her oral intake was noted adequate and normal. OBJECTIVE: VITAL SIGNS: Normal temperature, respiratory rate 20, heart rate 68, blood pressure 156/58 this morning. Pulse oxygen saturation on nasal cannula noted 2 liters 94% saturation. HEENT: Head was atraumatic. Eyes nonicterus. CARDIOVASCULAR: S1, S2 audible. LUNGS: Noted without any wheeze or crackles. ABDOMEN: Soft, nontender, positive present. EXTREMITIES: Without any acute edema. IMPRESSION: 1. Progressive improvement and resolution of acute hypoxic respiratory failure. 2. Chronic obesity and debility. 3. Status post incarcerated abdominal hernia repair. PLAN OF MANAGEMENT: The patient has been planned for discharge at this time by Dr. Melgar. Discharge planning was discussed with him. RUBY ARANDA MD CM:PNTRANS 1203 [id number] RUBY CLAY MD 09/11/17 1357 interface
--- NOTE | ~2017-09-05 | O ---
[place], [place] OPERATIVE NOTE NAME: [id number] UNIT #: [id number] ROOM: [place] [address] DOCTOR: EMEKA CALDERA MD BIRTHDATE: [birth year] DOS: 09/06/2017 PREOPERATIVE DIAGNOSIS: Incarcerated right inguinal hernia. POSTOPERATIVE DIAGNOSIS: Incarcerated right inguinal hernia. PROCEDURE: Repair of incarcerated right inguinal hernia (primary). SURGEON: Emeka Caldera MD HAM PUMPER: ROSS. ANESTHESIA: General with endotracheal intubation. INDICATIONS: This is an 87-year-old lady who was sent from her [facility] with a history of incarcerated right inguinal hernia. The patient has a history of dementia and therefore the procedure and its complications were explained to the patient's daughter in detail preoperatively. Complications that were discussed included but were not limited to bleeding, infection, damage to lying vital structures, inadvertent injury to vital structures, recurrence, prolonged pain and infection. She agreed for her mother to proceed. DESCRIPTION OF PROCEDURE: After identifying the patient, the patient was brought to the operating suite and laid in the supine position. After induction of general anesthesia, the parts were painted and draped in the usual sterile fashion. A time-out procedure was called. An incision was marked in the right groin and was taken with the help of an 11 blade, it was deepened in layers with the help of electrocautery. The external oblique aponeurosis was found to be extremely attenuated and it was incised in the line of its fibers. The sac was identified and was opened carefully in order to not damage the underlying bowel. Peritoneal fluid was sucked away and the sac was then opened on either side. The ileum that was in the sac was found to be viable without any evidence of strangulation or ischemia. The entire contents of the hernial sac were then reduced into the abdominal cavity. Thereafter, the internal ring was closed by approximating the upturned part of the inguinal ligament inferiorly and the conjoint tendon superiorly with the help of running 0 PDS. Thereafter, the subcutaneous tissue and the external oblique aponeurosis were approximated with the help of 3-0 Vicryl in a running fashion and the skin edges were approximated with the help of 4-0 Vicryl in a subcuticular running fashion after the edges were infiltrated with 1% plain lidocaine. Dressing was placed. The patient tolerated the procedure well and in intubated fashion she was taken to the ICU for further recovery. There were no complications. Dr. Emeka Caldera, the attending surgeon, was present throughout the operating case. [place], [place] OPERATIVE NOTE NAME: WILMA DIAZ UNIT #: [id number] ROOM: [place] [address] DOCTOR: EMEKA CALDERA MD BIRTHDATE: [birth year] Emeka Caldera MD CM:OPRECORD:OPERATIVE NOTE 1505 1521 EMEKA CALDERA MD 09/06/17 1520 interface
--- NOTE | ~2017-09-05 | PR ---
[place], [place] PROGRESS NOTE NAME: WILMA DIAZ [facility] #: [id number] UNIT #: [id number] ROOM: 420 DOCTOR: ROSI CLAY MD,RUBY BIRTHDATE: [birth year] DOS: 09/10/2017 SUBJECTIVE: The patient was noted comfortable at this time, resting on the bed without any acute distress, had not been reported any symptoms of chest pain, coughing or any sputum expectoration. Abdominal pain noted, fully awake and alert. She is currently being treated on the medical floor. OBJECTIVE: VITAL SIGNS: For the patient which had been recorded showed normal temperature, respiratory rate 20, heart rate 73, blood pressure 165/60. Pulse oxygen saturation of the patient was noted as 96 on 2 liter nasal cannula. HEENT: Examination shows head was atraumatic. Eyes nonicterus. NECK: Supple. CARDIOVASCULAR: S1, S2 is audible. LUNGS: The patient was noted without any wheezing or crackles at the present time. ABDOMEN: Soft, nontender. Bowel sounds present. EXTREMITIES: Without any acute edema. IMPRESSION: 1. The patient ____ continued resolution of the acute respiratory failure postoperatively. 2. The patient with overall debility. 3. Status post repair of the incarcerated abdominal hernia. PLAN OF MANAGEMENT: No change in pulmonary standpoint. Titrate oxygen. The patient to maintain pulse ox 90% or greater. Continue other supportive therapy, plan of management as in progress. As usual care. RUBY ARANDA MD CM:PNTRANS [phone] RUBY CLAY MD 09/10/17 1846 interface
--- NOTE | ~2017-09-05 | WRIGHTHP ---
[place], [place] PATIENT HISTORY AND PHYSICAL EXAM NAME: WILMA DIAZ [facility] #: [id number] UNIT #: [id number] ROOM: [place] [address] DOCTOR: HALLE CROWE MD BIRTHDATE: [birth year] DOS: 09/06/2017 HISTORY OF PRESENT ILLNESS: The patient is an 87-year-old female with a past medical history of: 1. Adult failure to thrive, with a DNR/comfort care code status. 2. Benign essential hypertension. 3. Mixed hyperlipidemia. 4. Late onset Alzheimer's type dementia. 5. History of multiple falls with subdural hematoma in the past. 6. Type 2 diabetes mellitus. 7. Vitamin D deficiency. The patient developed increase in swelling in the right inguinal hernia, which she had for some time. The size was noticed to be increased by the nursing staff at intermediate and it also showed discoloration of the skin. The patient was transferred to the Emergency Department and finally admitted and then taken for surgery and treated for incarcerated right inguinal hernia. The patient is recovering in the ICU and she was left with intubation and mechanical ventilation. The patient is awake, alert and in no visible distress. REVIEW OF SYSTEMS: LUNGS: No increasing shortness of breath. GASTROINTESTINAL: No recent nausea, vomiting, diarrhea or constipation. CARDIOVASCULAR: No chest pains or palpitations. FAMILY HISTORY: Noncontributory. HOME MEDICATIONS: [facility] medications are vitamin D, vitamin B12, Arthrotec, Aricept, lisinopril, memantine, metformin, misoprostol, MiraLax. ALLERGIES: No known drug allergies. PHYSICAL EXAMINATION: GENERAL: The patient is alert, intubated and on mechanical ventilation, with morbid obesity, generalized weakness. HEENT AND NECK: Extraocular movements are intact. Sclerae are anicteric. Oral mucosa is moist and clean. No obvious facial weakness. Neck is supple without any lymphadenopathy. No thyromegaly. No JVD. No carotid arterial bruits. LUNGS: Clear to auscultation. No wheezing. No rhonchi. CARDIOVASCULAR SYSTEM: Heart rate is regular in rate and rhythm. S1 and S2 normally audible. No significant murmur or any other abnormal cardiac sounds. ABDOMEN: Soft, nontender. No obvious organomegaly. Bowel sounds are present. No obvious herniation. EXTREMITIES: 2+ leg and pedal edema. CENTRAL NERVOUS SYSTEM: Alert and oriented x 3. Cranial nerves II-XII are intact. Speech is normal. The patient is able to move all extremities. Normal muscle strength. Deep tendon reflexes are equal on both sides. Plantars were downgoing. LABORATORY DATA: Normal serum electrolytes. Albumin low at 2.7. Normal CBC [place], [place] PATIENT HISTORY AND PHYSICAL EXAM NAME: WILMA DIAZ UNIT #: [id number] ROOM: [place] [address] DOCTOR: HALLE CROWE MD BIRTHDATE: [birth year] and platelets. IMPRESSION AND PLAN: 1. The patient is status post surgery for incarcerated right inguinal hernia, recovering in the ICU, still intubated and on mechanical ventilation. Dr. Graham, the robotics technician has been consulted. 2. Benign essential hypertension. Blood pressure is being monitored and controlled. 3. Late onset Alzheimer's type dementia. The patient remains on memantine and Aricept. 4. Type 2 diabetes mellitus. The patient's metformin was put on hold because of surgery. Blood sugar is being monitored and treated with sliding scale of regular insulin. 5. Chronic constipation. generally treated with MiraLax. HALLE CROWE MD CM:HISPHYS:PATIENT HISTORY AND PHYSICAL EXAMINATION 18 [phone] HALLE CROWE MD 09/06/171926 interface
--- NOTE | ~2017-09-05 | PR ---
[place], [place] PROGRESS NOTE NAME: WILMA DIAZ UNIT #: [id number] ROOM: [place] [address] DOCTOR: HALLE CROWE MD BIRTHDATE: [birth year] DOS: 09/07/2017 SUBJECTIVE: The patient is still intubated and on mechanical ventilation after surgery for incarcerated right inguinal hernia. The patient is recovering in the ICU and Dr. Graham is following her. IMPRESSION AND PLAN: 2. Benign essential hypertension. Blood pressures are reasonably controlled. 3. Late onset Alzheimer's type dementia. The patient remains on memantine and Aricept. 4. Type 2 diabetes mellitus. Blood sugars are being monitored and reasonably controlled. 5. Chronic constipation, treated with MiraLax. HALLE CROWE MD CM:CALLY [phone] HALLE CROWE MD 09/07/171951 interface
--- NOTE | ~2017-09-05 | PR ---
[place], [place] PROGRESS NOTE NAME: WILMA DIAZ UNIT #: [id number] ROOM: 427 DOCTOR: HALLE CROWE MD BIRTHDATE: [birth year] DOS: 09/09/2017 SUBJECTIVE: The patient is awake, alert, pleasantly confused. OBJECTIVE: VITAL SIGNS: Blood pressure 153/63, afebrile, heart rate of 71 beats per minute, breathing rate 23 times per minute. GENERAL APPEARANCE: The patient is alert and oriented x 3, in no visible distress. Generalized weakness, morbid obesity and mental confusion. HEENT AND NECK: Exam within normal limits. CARDIOVASCULAR SYSTEM: Heart rate is regular in rate and rhythm. S1 and S2 normally audible. LUNGS: Clear to auscultation. ABDOMEN: Soft, nontender. No obvious organomegaly. Bowel sounds are present. EXTREMITIES: Without significant cyanosis or edema. IMPRESSION: 1. Postop respiratory failure. The patient extubated from mechanical and taken off mechanical ventilation. She is breathing better now. 2. Repair of incarcerated inguinal hernia. The patient started tolerating diet and moving her bowels. 3. Benign essential hypertension with controlled blood pressures with treatment. 4. Late onset Alzheimer's type dementia with some mental confusion. The patient remains on Aricept. 5. Type 2 diabetes mellitus. Blood sugars are being monitored and treated and staying normal. 6. Leukocytosis after surgery is improving. Hemoglobin of 11.3. 7. Morbid obesity. 8. Adult failure to thrive, generalized weakness. The patient working with physical therapy. 9. Chronic constipation being treated with MiraLax. The patient started moving her bowels. 10. After clearance from surgery, patient can be discharged from the hospital. [place], [place] PROGRESS NOTE NAME: WILMA DIAZ UNIT #: [id number] ROOM: 427 DOCTOR: HALLE CROWE MD BIRTHDATE: [birth year] HALLE CROWE MD CM:PNTRANS 45 [phone] HALLE CROWE MD 09/09/171 interface
[~2017-09-05 22:28] MED LIST changes: +ADULT TUSS100 MG/5 M PO; +AMOXICILLIN500 M2 PO; +CEFUROXIME AXE250 MG PO; +CLARITIN10 MG PO; +LEVOFLOXACIN500 MG PO; +VITAMIN B-12500 MC3 PO; +VITAMIN D31000 UNIT PO
[2017-09-05 22:36] VITALS: BP 157/57
[2017-09-05 23:09] LABS: BASO # 0.1 10*3/uL (0.0-0.1); BASO % 0.8 % (0.0-1.0); EOS # 0.4 10*3/uL (0.0-0.4); EOS % 3.3 % (1.0-4.0); HEMATOCRIT 40.5 % (37.0-47.0); HEMOGLOBIN 12.8 g/dl (12.0-16.0); LYMPH # 2.5 10*3/uL (1.3-4.4); LYMPH % 21.1 % (27.0-41.0); MEAN CELL VOLUME 94.8 fl (81.0-99.0); MEAN CORPUSCULAR HGB CONC 31.6 g/dl (33.0-37.0); MEAN PLATELET VOLUME 10.9 fl (9.6-12.3); MONO # 1.2 10*3/uL (0.1-1.0); MONO % 9.6 % (3.0-9.0); NEUT # 7.7 10*3/uL (2.3-7.9); NEUT % 64.1 % (47.0-73.0); PLATELET COUNT AUTOMATED 258 10*3/uL (130-400); RED BLOOD COUNT 4.27 10*6/uL (4.10-5.10); RED CELL DISTRI WIDTH 14.9 % (0-14.5)
[2017-09-05 23:25] LABS: ALBUMIN 3.2 gm/dl (3.1-4.5); CREATININE 1.31 mg/dL (0.55-1.02); POTASSIUM 4.6 mmol/L (3.5-5.1); TOTAL PROTEIN 6.4 gm/dL (6.4-8.2)
[2017-09-06] LABS: BILIRUBIN NEGATIVE (NEGATIVE); BLOOD TRACE-INTACT (NEGATIVE); CLARITY CLEAR (CLEAR); COLOR YELLOW (YELLOW); GLUCOSE NEGATIVE (NEGATIVE); KETONE NEGATIVE (NEGATIVE); LEUKO ESTERASE 1+ (NEGATIVE); NITRITE POSITIVE (NEGATIVE); PH 5.5 (5.0-9.0); SPECIFIC GRAVITY 1.025 (1.005-1.030); UROBILINOGEN 0.2 E.U./dl (0.2-1.0)
[2017-09-06 00:11] LABS: BACTERIA 3+; EPITHELIAL CELLS 50-55
[2017-09-06] MEDS ORDERED: MIRALAX17 GM PO (01:01)
[2017-09-06] MEDS ORDERED: MISOPROST200 MCG PO (01:02)
[2017-09-06 01:29] VITALS: BP 150/62
[2017-09-06 01:36] VITALS: BP 157/79
[2017-09-06 08:00] VITALS: BP 149/55
[2017-09-06 09:54] LABS: BASO # 0.1 10*3/uL (0.0-0.1); BASO % 0.8 % (0.0-1.0); EOS # 0.4 10*3/uL (0.0-0.4); EOS % 4.4 % (1.0-4.0); HEMATOCRIT 38.9 % (37.0-47.0); HEMOGLOBIN 12.4 g/dl (12.0-16.0); LYMPH # 2.2 10*3/uL (1.3-4.4); LYMPH % 22.1 % (27.0-41.0); MEAN CELL VOLUME 94.9 fl (81.0-99.0); MEAN CORPUSCULAR HGB 30.2 pg (27.0-31.0); MEAN CORPUSCULAR HGB CONC 31.9 g/dl (33.0-37.0); MEAN PLATELET VOLUME 10.5 fl (9.6-12.3); MONO % 10.4 % (3.0-9.0); NEUT # 6.1 10*3/uL (2.3-7.9); PLATELET COUNT AUTOMATED 238 10*3/uL (130-400); RED CELL DISTRI WIDTH 14.8 % (0-14.5)
[2017-09-06 10:02] LABS: ACT PARTIAL THROMBO TIME 24.8 SECONDS (20.8-31.5); INTERNATIONAL NORM RATIO 0.9 (2.0-3.5)
[2017-09-06 10:11] LABS: ALBUMIN 2.7 gm/dl (3.1-4.5); ALKALINE PHOSPHATASE 58 U/L (45-117); BUN 31 mg/dl (7-24); CHLORIDE 109 mmol/L (98-107); CREATININE 0.95 mg/dL (0.55-1.02); POTASSIUM 4.5 mmol/L (3.5-5.1); SGOT/AST 23 IU/L (3-35); SGPT/ALT 33 U/L (12-78); SODIUM 142 mmol/L (136-145); TOTAL PROTEIN 5.8 gm/dL (6.4-8.2)
[2017-09-06 15:00] VITALS: BP 167/74
[2017-09-06 15:59] LABS: ABG BASE EXCESS -2.9 mmol/L (-2.0-2.0); ABG HCO3 24.3 mmol/l (22-26); ABG O2 SATURATION 99.2 % (95-97); ARTERIAL BLOOD GAS PCO2 53.7 mmHg (35-45); ARTERIAL BLOOD GAS PH 7.273 (7.35-7.45)
[2017-09-06 20:00] VITALS: BP 135/63
[2017-09-07] VITALS (8 sets, daily range): BP systolic 100–131; BP diastolic 46–64
[2017-09-07 07:37] LABS: ABG BASE EXCESS -2.5 mmol/L (-2.0-2.0); ABG HCO3 21.7 mmol/l (22-26); ARTERIAL BLOOD GAS PCO2 36.4 mmHg (35-45); ARTERIAL BLOOD GAS PH 7.39 (7.35-7.45)
[2017-09-07 10:04] LABS: BASO % 0.1 % (0.0-1.0); EOS % 0.1 % (1.0-4.0); HEMATOCRIT 36.5 % (37.0-47.0); HEMOGLOBIN 11.8 g/dl (12.0-16.0); LYMPH # 1.5 10*3/uL (1.3-4.4); LYMPH % 10.3 % (27.0-41.0); MEAN CELL VOLUME 93.6 fl (81.0-99.0); MEAN CORPUSCULAR HGB 30.3 pg (27.0-31.0); MEAN CORPUSCULAR HGB CONC 32.3 g/dl (33.0-37.0); MEAN PLATELET VOLUME 10.7 fl (9.6-12.3); MONO # 1.5 10*3/uL (0.1-1.0); MONO % 9.9 % (3.0-9.0); NEUT # 11.7 10*3/uL (2.3-7.9); NEUT % 78.2 % (47.0-73.0); PLATELET COUNT AUTOMATED 260 10*3/uL (130-400); RED CELL DISTRI WIDTH 14.8 % (0-14.5); WHITE BLOOD COUNT 14.9 10*3/uL (4.8-10.8)
[2017-09-07 10:25] LABS: ALBUMIN 3.1 gm/dl (3.1-4.5); ALKALINE PHOSPHATASE 55 U/L (45-117); BUN 26 mg/dl (7-24); CHLORIDE 110 mmol/L (98-107); CREATININE 1.01 mg/dL (0.55-1.02); POTASSIUM 4.6 mmol/L (3.5-5.1); SGOT/AST 59 IU/L (3-35); SGPT/ALT 67 U/L (12-78); SODIUM 141 mmol/L (136-145); TOTAL PROTEIN 5.8 gm/dL (6.4-8.2)
[2017-09-07 11:07] LABS: ABG BASE EXCESS -2.6 mmol/L (-2.0-2.0); ABG HCO3 23.2 mmol/l (22-26); ABG O2 SATURATION 96.9 % (95-97); ARTERIAL BLOOD GAS PCO2 45.9 mmHg (35-45); ARTERIAL BLOOD GAS PH 7.321 (7.35-7.45); ARTERIAL BLOOD GAS PO2 90.8 mmHg (80-90)
[2017-09-08] VITALS (8 sets, daily range): BP systolic 100–150; BP diastolic 36–63
[2017-09-08 07:36] LABS: ABG BASE EXCESS -0.8 mmol/L (-2.0-2.0); ABG HCO3 23.6 mmol/l (22-26); ABG O2 SATURATION 96.4 % (95-97); ARTERIAL BLOOD GAS PCO2 39.6 mmHg (35-45); ARTERIAL BLOOD GAS PH 7.391 (7.35-7.45); ARTERIAL BLOOD GAS PO2 82.9 mmHg (80-90)
[2017-09-08 10:51] LABS: ABG BASE EXCESS -1.8 mmol/L (-2.0-2.0); ABG HCO3 24.2 mmol/l (22-26); ABG O2 SATURATION 94.4 % (95-97); ARTERIAL BLOOD GAS PCO2 47.8 mmHg (35-45); ARTERIAL BLOOD GAS PH 7.322 (7.35-7.45); ARTERIAL BLOOD GAS PO2 77.2 mmHg (80-90)
[2017-09-09] VITALS: BP 136/59
[2017-09-09 04:00] VITALS: BP 129/49
[2017-09-09 06:08] LABS: BASO # 0.1 10*3/uL (0.0-0.1); BASO % 0.7 % (0.0-1.0); EOS # 0.4 10*3/uL (0.0-0.4); EOS % 3.3 % (1.0-4.0); HEMATOCRIT 35.3 % (37.0-47.0); HEMOGLOBIN 11.3 g/dl (12.0-16.0); LYMPH % 16.7 % (27.0-41.0); MEAN CELL VOLUME 95.7 fl (81.0-99.0); MEAN CORPUSCULAR HGB 30.6 pg (27.0-31.0); MEAN PLATELET VOLUME 11.2 fl (9.6-12.3); MONO # 1.3 10*3/uL (0.1-1.0); MONO % 10.7 % (3.0-9.0); NEUT # 8.1 10*3/uL (2.3-7.9); NEUT % 66.7 % (47.0-73.0); PLATELET COUNT AUTOMATED 246 10*3/uL (130-400); RED BLOOD COUNT 3.69 10*6/uL (4.10-5.10); WHITE BLOOD COUNT 12.1 10*3/uL (4.8-10.8)
[2017-09-09 06:10] LABS: BUN 22 mg/dl (7-24); CHLORIDE 110 mmol/L (98-107); CREATININE 0.92 mg/dL (0.55-1.02); SODIUM 145 mmol/L (136-145)
[2017-09-09 06:12] LABS: POTASSIUM 3.6 mmol/L (3.5-5.1)
[2017-09-09 08:00] VITALS: BP 132/76
[2017-09-09 12:00] VITALS: BP 160/57
[2017-09-09 16:00] VITALS: BP 153/63
[2017-09-09 20:00] VITALS: BP 149/77
[2017-09-10] VITALS: BP 160/63
[2017-09-10 08:00] VITALS: BP 165/60
[2017-09-10 12:00] VITALS: BP 175/71
[2017-09-10 16:00] VITALS: BP 156/83
[2017-09-10 20:00] VITALS: BP 167/82
[2017-09-11] VITALS: BP 145/83
[2017-09-11 04:00] VITALS: BP 178/60
[2017-09-11 08:00] VITALS: BP 156/58
[2017-09-11 12:00] VITALS: BP 166/61
== END 2017-09-11 17:30 | disposition other institution (70) | DRG 350 ==
LOC: ED 22:28 → ICCU 09-06 01:14 → 4E 09-06 01:14 → EDHOLD 09-06 01:14 → 5E 09-06 01:23 → ICCU 09-06 15:08 → 4E 09-09 20:19
PROVIDERS: Internal Medicine; Internal Medicine Critical Care Medicine; Physician Assistant; Surgery
PROC: 0YQ50ZZ Repair Right Inguinal Region, Open Approach (ICD-10-PCS; principal; 2017-09-06)
PROC: 5A1945Z Respiratory Ventilation, 24-96 Consecutive Hours (ICD-10-PCS; 2017-09-09)
DX: K40.30 Unilateral inguinal hernia, with obstruction, without gangrene, not specified as recurrent (principal); J96.02 Acute respiratory failure with hypercapnia; J96.01 Acute respiratory failure with hypoxia; N17.9 Acute kidney failure, unspecified; E87.2 Acidosis; N39.0 Urinary tract infection, site not specified; N18.2 Chronic kidney disease, stage 2 (mild); E66.01 Morbid (severe) obesity due to excess calories; K59.09 Other constipation; R62.7 Adult failure to thrive; G30.1 Alzheimer's disease with late onset; F02.80 Dementia in other diseases classified elsewhere, unspecified severity, without behavioral disturbance, psychotic disturbance, mood disturbance, and anxiety; Z96.643 Presence of artificial hip joint, bilateral; E78.2 Mixed hyperlipidemia; D72.829 Elevated white blood cell count, unspecified; I12.9 Hypertensive chronic kidney disease with stage 1 through stage 4 chronic kidney disease, or unspecified chronic kidney disease; M19.90 Unspecified osteoarthritis, unspecified site; E11.22 Type 2 diabetes mellitus with diabetic chronic kidney disease; Z90.49 Acquired absence of other specified parts of digestive tract; Z90.710 Acquired absence of both cervix and uterus; Z87.891 Personal history of nicotine dependence; Z82.49 Family history of ischemic heart disease and other diseases of the circulatory system; Z82.0 Family history of epilepsy and other diseases of the nervous system; Z80.8 Family history of malignant neoplasm of other organs or systems; Z91.81 History of falling; Z79.899 Other long term (current) drug therapy; Z68.29 Body mass index [BMI] 29.0-29.9, adult

== ENCOUNTER → 2017-10-02 | Outpatient (CLI) | payer MEDICARE, OTHER, MEDICAID ==
[~2017-10-02] MED LIST changes: +BUMETANIDE1 MG PO; +MIRALAX17 GM PO; +MISOPROST200 MCG PO
--- NOTE | ~2017-10-02 | SLPPN ---
[place], [place] TECHNOLOGY SOLUTIONS ARCHITECT PROGRESS NOTE NAME: WILMA DIAZ UNIT #: [id number] ROOM: DOCTOR: BRENDON SOLER MD Speech Language Pathology Treatment Note Page 1 1 of Patient Name: WILMA DIAZ Date: 10/02/2017 09:50 AM : 1930 SOC Date: 10/02/2017 [facility]: [facility] Provider #: [id number] Treating Clinician: TANJA Gilliam-MAYUR Referring Physician: BRENDON SOLER Onset Date Description Code Primary Diagnosis: 10/01/2017 A0000 NO DIAGNOSIS SENT TO THE [facility] Time In: 09:00 PM Time Out: 10:00 AM TECHNOLOGY SOLUTIONS ARCHITECT Interventions and CPT Codes Consisted of: CPT Code Modifiers Minutes Units MOTION FLUOROSCOPY/SWALLOW 19329 60 1 Total Minutes: 60 Total Timed Minutes: 0 Total Untimed Minutes: 60 Total Units: 1 Total Timed Units: 0 Total Untimed Units: 1 10/02/2017 9:51:36 AM TIEN Gilliam Date/Time State License #: [id number] CM:[facility]
--- NOTE | ~2017-10-02 | PROC NOTE ---
[place], [place] PROCEDURE NOTE NAME: WILMA DIAZ UNIT #: [id number] ROOM: DOCTOR: TYRONE WOO BIRTHDATE: [birth year] DOS: 10/02/2017 MODIFIED BARIUM SWALLOW ORDERING PHYSICIAN: Dr. Oates. RADIOLOGIST: Dr. Peterson. BACKGROUND INFORMATION: The patient, an 87-year-old female, was seen for modified barium swallow. This test was ordered to rule out aspiration. Reports indicate that patient underwent recent surgery with intubation and has had some difficulty swallowing since that time. She is a correction resident and receives a soft diet with ground meats and thin liquids. For today's assessment, she was alert with confusion, but able to follow commands. She was receiving oxygen via nasal cannula and reported no shortness of breath. Patient was edentulous. Lingual and labial skills were within functional limits in terms of strength, range of motion, and coordination. The patient was able to volitionally cough and swallow. METHODS AND MATERIALS USED FOR THE EXAM: The patient was positioned in the lateral plane and the exam was viewed under fluoroscopy. The patient was presented with a variety of consistencies to assess swallowing skills including applesauce mixed with barium presented in half teaspoon amounts, barium-coated banana and cookie taken in bite size pieces and thin liquid barium taken by cup and straw. ORAL PHASE: The patient achieved adequate labial seal around cup, spoon and straw with no anterior loss. Bolus formation and transit were adequate. Mastication was slow due to edentulous status. Tongue to palate contact was within normal limits. Tongue retraction was within normal limits. Velar functioning was within normal limits with no nasal regurgitation. PHARYNGEAL PHASE: Unremarkable. ESOPHAGEAL PHASE: This phase of the swallow was not formally assessed during this exam. IMPRESSIONS AND RECOMMENDATIONS: Based upon assessment results, this 87-year-old patient presents with oral and pharyngeal swallowing skills that are within functional limits. It is recommended that she remain on present diet. Followup therapy is not warranted. Results and recommendations were shared with the patient, her family member and a written copy was provided for education of correction staff. Thank you very much for this referral. Should you have any questions, please contact the speech pathologist at [phone]. [place], [place] PROCEDURE NOTE NAME: WILMA DIAZ UNIT #: [id number] ROOM: DOCTOR: TYRONE WOO BIRTHDATE: [birth year] TYRONE WOO CM:PROCNOTE:PROCEDURE NOTE [id number] BRENDON WOO
--- NOTE | ~2017-10-02 | SLPIE ---
[place], [place] DISPATCHER RADIO INITIAL EVALUATION NAME: WILMA DIAZ UNIT #: [id number] ROOM: DOCTOR: BRENDON SOLER MD Speech Language Pathology Initial Evaluation Page 1 1 of Patient Name: WILMA DIAZ Date: 10/02/2017 09:49 AM : 1930 SOC Date: 10/02/2017 [facility] Provider #: [id number] Treating Clinician: TANJA Gilliam-MAYUR Referring Physician: BRENDON SOLER Patient Information Address: [address] [place] [address] Physician: BRENDON SOLER Physician #: [facility], [facility], Zip: [place], [place] [address] Occupation: Unknown # of Approved Visits: 0 Gender: Female Medicaid #: [id number] Utility Manager: TARI DIAZ Medicare #: [id number] Rehabilitation Information / History Onset Date Code Description Primary Diagnosis: 10/01/2017 A0000 NO DIAGNOSIS SENT TO THE [facility] Subjective Comments: Initial evaluation created to initiate the electronic medical record. Please see iYogi for details. Rehabilitation Information / History Clinical Findings Functional Goals Functional Limitation Reporting Swallowing G8996 - Swallowing functional limitation, current status at therapy episode outset and at reporting intervals Current Status: CI - At least 1 percent but less than 20 percent impaired, limited or restricted G8997 - Swallowing functional limitation, projected goal status, at therapy episode outset, at reporting intervals, and at discharge or to end reporting Goal Status: CI - At least 1 percent but less than 20 percent impaired, limited or restricted G8998 - Swallowing functional limitation, discharge status, at discharge from therapy or to end reporting Discharge Status: CI - At least 1 percent but less than 20 percent impaired, limited or restricted 10/02/2017 9:50:31 AM TIEN Gilliam Date/Time [place], [place] DISPATCHER RADIO INITIAL EVALUATION NAME: WILMA DIAZ UNIT #: [id number] ROOM: DOCTOR: BRENDON SOLER MD [facility] License #: [id number] CM:JUNIOR 1 0 IS THERAPY [facility]
--- NOTE | ~2017-10-02 | SLPPOC ---
[place], [place] PLATE WORKER PLAN OF CARE NAME: WILMA DIAZ UNIT #: [id number] ROOM: DOCTOR: BRENDON SOLER MD Speech Language Pathology Plan of Care Page 1 1 (Initial Evaluation) of Patient Name: WILMA DIAZ Date: 10/02/2017 09:49 AM : 1930 SOC Date: 10/02/2017 [facility]: [facility] Provider #: [id number] Treating Clinician: TANJA Gilliam-PLATE WORKER Referring Physician: BRENDON SOLER Medicare #: [id number] Visits From SOC: Medicaid #: [id number] Onset Date Description Code Primary Diagnosis: 10/01/2017 A0000 NO DIAGNOSIS SENT TO THE [facility] Subjective Comments: Initial evaluation created to initiate the electronic medical record. Please see Spark[facility] for details. Initial Level Goals Functional Limitation Reporting Swallowing G8996 - Swallowing functional limitation, current status at therapy episode outset and at reporting intervals Current Status: CI - At least 1 percent but less than 20 percent impaired, limited or restricted G8997 - Swallowing functional limitation, projected goal status, at therapy episode outset, at reporting intervals, and at discharge or to end reporting Goal Status: CI - At least 1 percent but less than 20 percent impaired, limited or restricted G8998 - Swallowing functional limitation, discharge status, at discharge from therapy or to end reporting Discharge Status: CI - At least 1 percent but less than 20 percent impaired, limited or restricted 10/02/2017 9:50:31 AM BRENDON SOLER Date/Time TANJA Gilliam-MAYUR Date I certify the need for these services furnished under this plan of treatment while under my care. State License #: [id number] CM[facility]
== END | disposition home or self-care (01) ==
LOC: RAD/SH 03:30
DX: J18.9 Pneumonia, unspecified organism (principal); R13.10 Dysphagia, unspecified

== ENCOUNTER 2017-10-30 12:03 | Inpatient (IN) | payer MEDICARE, OTHER, MEDICAID ==
[~2017-10-30] VITALS: Ht 170.1 cm; Wt 80.7 kg
--- NOTE | ~2017-10-30 | PR ---
[place], [place] PROGRESS [id number] UNIT #: [id number] ROOM: 526 DOCTOR: ROSI CLAY MD,RUBY BIRTHDATE: [birth year] DOS: 11/02/2017 PULMONARY PROGRESS NOTE SUBJECTIVE: She has been noted comfortable at this time as per her daughter due to acute shortness of breath. Wheezing was also noted and decreased cough. The patient remains the same as previously. There were symptoms of chest pain. She has been currently resting comfortably on the bed this morning of assessment. OBJECTIVE: VITAL SIGNS: Normal temperature, respiratory rate of 24-18, heart rate 111, blood pressure 150/65. The pulse ox saturation on 3 liters nasal cannula 95% saturation. HEENT: Shows head was atraumatic. Eyes nonicterus. NECK: Supple. CARDIOVASCULAR: S1, S2 audible. LUNGS: Noted with moderate decreased breath sounds, expiratory wheezing, no crackles. ABDOMEN: Soft, nontender. Bowel sounds present. EXTREMITIES: Without any acute edema. IMPRESSION: The patient will be currently treated for acute pneumonia with small bilateral pleural fluid, acute exacerbation of bronchial asthma, still noted with nonproductive cough. PLAN OF MANAGEMENT: Continuation of current plan of management at this time in progress. Usual care, other supportive plan of therapy, and care plan. Proceed with bronchoscopy tomorrow morning, as already been discussed with the patient's daughter. The consent has been obtained. N.p.o. past night for bronchoscopy today. RUBY ARANDA MD CM:PNTRANS [id number] RUBY CLAY MD 11/11/17 0842 interface
--- NOTE | ~2017-10-30 | PROC NOTE ---
[place], [place] PROCEDURE NOTE NAME: [id number] UNIT #: [id number] ROOM: 526 DOCTOR: TYRONE WOO BIRTHDATE: [birth year] DOS: 10/31/2017 MODIFIED BARIUM SWALLOW LOCATION: [facility], room 526, bed 1. ORDERING PHYSICIAN: Dr. Oates. RADIOLOGIST: Dr. Peterson. BACKGROUND INFORMATION: The patient is an 87-year-old female who was seen for modified barium swallow. This test was ordered to rule out aspiration. [facility] with increased congestion, cough and hypoxemia. Further medical history includes UTI, CHF, acute metabolic encephalopathy, sepsis, DM, HTN, Alzheimer's dementia, and multiple falls. She was seen for an outpatient modified barium swallow on 10/02/2017. At that time, she displayed oral and pharyngeal swallowing skills within functional limits and was recommended a soft diet and thin liquids. The patient remains on soft diet and thin liquids. For today's assessment, the patient was weak, congested and coughing prior to oral presentations. The patient was awake and responded to questions in simple commands, but she kept her eyes closed. She was receiving oxygen via nasal cannula. Oral peripheral examination revealed edentulous status and consistent open mouth position. The patient displayed adequate range of motion and coordination, and lingual and labial skills. Strength was mildly impaired. METHODS AND MATERIALS USED FOR THE EXAM: The patient was positioned in the lateral plane and the exam was viewed under fluoroscopy. The patient was presented with a variety of consistencies to assess swallowing skills including applesauce mixed with barium presented in half teaspoon amounts and nectar and thin liquid barium taken by cup. Solids were not administered due to the patient's weakened state. ORAL PHASE: The patient achieved adequate labial seal around cup and spoon with no anterior loss. Bolus formation and transit were within functional limits. Tongue to palate contact was adequate. Tongue retraction was adequate. Velar functioning was within normal limits with no nasal regurgitation. PHARYNGEAL PHASE: The pharyngeal swallow occurred within a timely manner. There was no penetration or aspiration with any consistency and no significant residue in the pharynx post-swallow. ESOPHAGEAL PHASE: This phase of the swallow was not formally assessed during this exam. IMPRESSIONS AND RECOMMENDATIONS: Based upon assessment results, this 87-year-old female presented with safe swallowing skills for pureed nectar thick and thin liquids. Solids were not attempted due to her weak state. The patient's medical status and her history of dysphagia place her at high risk for aspiration even though no aspiration was noted during this exam. Due to her [place], [place] PROCEDURE NOTE NAME: WILMA DIAZ UNIT #: [id number] ROOM: 526 DOCTOR: TYRONE WOO BIRTHDATE: [birth year] risk, it is recommended that she receive a pureed diet and nectar thick liquids. Recommend safe swallow precautions such as upright positioning for all p.o. intake, small bites and sips and monitoring for signs and symptoms of aspiration. Follow up therapy will be conducted to ensure safety with highest level diet. Results and recommendations were shared with the patient's nurse who verbalized understanding. Thank you very much for this referral. Should you have any questions regarding this patient, please contact the speech pathologist at [phone]. TYRONE WOO CM:PROCNOTE:PROCEDURE NOTE [id number] TYRONE WOO
--- NOTE | ~2017-10-30 | PR ---
[place], [place] PROGRESS NOTE NAME: WILMA DIAZ UNIT #: [id number] ROOM: 526 DOCTOR: BRENDON SOLER MD BIRTHDATE: [birth year] DOS: SUBJECTIVE: The patient is doing well, does not have any new complaints. She was in deep sleep, but was able to wake up health information director and answers questions appropriately. VITAL SIGNS: Pressure is 146/76, pulse of 90, respirations 20, temperature 98.3. LUNGS: Diminished breath sounds. HEART: Regular. ABDOMEN: Obese. EXTREMITIES: Without any edema. ASSESSMENT AND PLAN: 1. Tracheomalacia with consolidation and pneumonia on IV antibiotics. 2. Extended-spectrum beta-lactamase Escherichia coli urinary tract infection, again on antibiotics. Contact isolation. 3. Alzheimer dementia. Continues to have a DNR-CC code status. We will arrange for a PICC line placement, arrange for discharge to care home in the morning. BRENDON SOLER MD CM:PNTRANS [id number] BRENDON SOLER MD 11/03/17 0742 interface
--- NOTE | ~2017-10-30 | EKG ---
[place], [place] ELECTROCARDIOGRAM REPORT NAME: WILMA DIAZ UNIT #: [id number] ROOM: 526 DOCTOR: ROSI CLAY MD,RUBY BIRTHDATE: [birth year] DOS: 11/01/2017 The electrocardiogram was done on 11/01/2017 at 2:14 p.m. Normal sinus rhythm noted. Heart rate 98 beats per minute with evidence of multiform PVCs. Nonspecific ST-T changes noted in the anterolateral leads. RUBY ARANDA MD CM:EKGRPT:ELECTROCARDIOGRAM REPORT [id number] RUBY CLAY MD
--- NOTE | ~2017-10-30 | DS ---
[place], [place] DISCHARGE SUMMARY NAME: WILMA DIAZ UNIT #: [id number] ROOM: 526 DOCTOR: BRENDON SOLER MD BIRTHDATE: [birth year] DOS: 11/04/2017 The patient is 87 years old. She was admitted to the hospital on 10/30/2017, discharged on 11/04/2017. DIAGNOSES: 1. Bilateral pneumonia with consolidation. 2. Possible diastolic congestive heart failure, acute. 3. 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 4. Alzheimer dementia, late onset. 5. Degenerative joint disease of multiple joints. 6. Urinary tract infection with Escherichia coli, which is ESBL, status post bronchoscopy with bronch culture showing gram-negative bacilli, preliminary is normal luke. We do not have the final cultures yet. A PICC line to be placed. Continue IV antibiotics at the long-term. 7. kidney disease stage 3. Please avoid nephrotoxic medications. HOSPITAL COURSE: The patient is 87 years old, comes in with complaints of difficulty breathing, hypoxemia, chest congestion and cough. The patient was admitted. After evaluation in the ER, was found to have a chest x-ray, which showed mostly CHF. After admission, the patient was placed on diuretics and ordered a CT of the chest, which showed mostly bilateral pneumonia with consolidation. Modified barium swallow was done, which did not show any evidence of aspiration. Dr. Graham was consulted, and the patient was taken for a bronchoscopy. Bronch cultures, normal luke preliminary. Blood cultures were negative. Urine culture showed E. coli, which is ESBL. The patient is on meropenem and vancomycin, which will be continued at the long-term for a few days. The patient to remain DNR-CC at the long-term. DISCHARGE MEDICATIONS: Aricept 23 mg at bedtime, breathing treatments q.6 hours, lisinopril 10 daily, Namenda 28 daily, meropenem 1 g IV q.8 hours. Please give the patient medication for 7 days and then repeat urine culture after the completion of antibiotics. [place], [place] DISCHARGE SUMMARY NAME: WILMA DIAZ UNIT #: [id number] ROOM: 526 DOCTOR: BRENDON SOLER MD BIRTHDATE: [birth year] BRENDON SOLER MD CM:LAN 4 8 BRENDON SOLER MD 11/04/17 0828 interface
--- NOTE | ~2017-10-30 | PR ---
[place], [place] PROGRESS NOTE NAME: WIMLA DIAZ UNIT #: [id number] ROOM: 526 DOCTOR: RUBY PARKER MD BIRTHDATE: [birth year] DOS: 11/04/2017 PULMONARY PROGRESS NOTE SUBJECTIVE: The patient is noted comfortable at this time, resting comfortably at this time with significant reduction and improvement in the symptoms of cough and shortness of breath was noted. The patient has not been noted any ongoing acute other complaints. She has been noted dementia, unable to very well communicate verbally. OBJECTIVE: VITAL SIGNS: Which was recorded shows the temperature noted as normal, respiratory rate 20, heart rate of 74, blood pressure 152/64. The pulse oxygen saturation of the patient recorded as 94% on 3 liters nasal cannula. HEENT: Shows head was atraumatic, eyes nonicterus. NECK: Supple. CARDIOVASCULAR: S1, S2 audible. LUNGS: Without any wheeze or crackles. ABDOMEN: Soft, nontender. Bowel sounds present. EXTREMITIES: Without any acute edema. LABORATORY DATA: Chest x-ray yesterday shows basilar area of infiltration. The bronchial washing culture was noted normal luke. IMPRESSION: 1. Acute pneumonia, resolving clinically, still noted with infiltration in the lower lungs with chest x-ray with preliminary bronchial washing culture noted as normal luke. 2. Resolving acute exacerbation of bronchial asthma, resolution of wheezing. PLAN OF MANAGEMENT: Discharge planning for the patient with antibiotics, bronchodilators, oxygen supplementation has been noted in progress. No additional change in treatment will be necessary today. [place], [place] PROGRESS NOTE NAME: WILMA DIAZ UNIT #: [id number] ROOM: 526 DOCTOR: RUBY PARKER MD BIRTHDATE: [birth year] RUBY ARANDA MD CM:PNTRANS [id number] RUBY CLAY MD 11/04/17 1024 interface
--- NOTE | ~2017-10-30 | CON ---
[place], [place] REPORT OF CONSULTATION NAME: [id number] UNIT #: [id number] ROOM: 526 DOCTOR: RUBY PARKER MD BIRTHDATE: [birth year] DOS: 10/31/2017 CONSULTATION REQUESTED BY: Dr. Shaye Oates. REASON FOR CONSULTATION: For assessment of respiratory status. HISTORY OF PRESENT ILLNESS: An 87-year-old female patient who has not been able to give me any history with history of dementia. The patient was admitted to the hospital. I was asked for consultation for assessment of ongoing respiratory symptoms of cough and others. The patient's history was obtained from the past record documentation, assessment as well as current documentation done by Dr. Shaye Oates as well. She was admitted to the hospital because of progressive coughing with increased chest congestion, inability to expectorate sputum and also noted with increased oxygen desaturation from the usp. The symptoms have been present for 2 weeks and treated with antibiotic and failed to resolve. She has been currently admitted to the hospital, still noted mild dyspnea at rest as seen with some excessive chest congestion, coughing, not expectorating any sputum. She has not been able to have interaction verbally to give me any history. REVIEW OF SYSTEMS: Cannot be completed at the present time because of the patient's current history of dementia and other issues. PAST MEDICAL HISTORY: Noted on last admission and review of the medical record in 09/2017 has been noted with: 1. Right inguinal incarcerated hernia, which has been treated and required short-term mechanical ventilation and liberated from mechanical ventilation successfully. 2. History of Alzheimer dementia. 3. History of previous fall with subdural hematoma by history. 4. Hyperlipidemia. 5. Chronic kidney disease. 6. Mild to moderate obesity. PAST SURGICAL HISTORY: 1. Incarcerated right inguinal hernia repair on 09/06/2017. 2. Bilateral carpal tunnel release. 3. Hysterectomy. 4. Appendectomy. 5. Cholecystectomy. 6. Bilateral hip replacement. SOCIAL HISTORY: Currently , not noted with history of tobacco, alcohol or illicit drug use. FAMILY HISTORY: Unknown. CURRENT MEDICATIONS: Administered on this hospitalization noted use of Aricept, Namenda, lisinopril, metformin, Rocephin and others. [place], [place] REPORT OF CONSULTATION NAME: WILMA DIAZ UNIT #: [id number] ROOM: 526 DOCTOR: ROSI CLAY MD,RUBY BIRTHDATE: [birth year] DRUG ALLERGIES: The patient noted no known drug allergies. PHYSICAL EXAMINATION: GENERAL: This is an 87-year-old white female who has been noted currently awake and alert with mild tachypnea. Height of 5 feet 7 inches, weight 185 pounds, BMI 28. Using oxygen supplementation with the nasal cannula. VITAL SIGNS: Show normal temperature since admission last 24 hours, respiration 18-22, heart rate 60-108, blood pressure 137/51-176/88. Pulse oxygen saturation noted on 4 liter nasal cannula 95% saturation, on admission 80% on room air at rest. HEENT: Head was atraumatic. Eyes: No icterus. NECK: Supple. CARDIOVASCULAR: S1, S2 audible. LUNGS: The patient was noted with general reduction in the breath sounds in the lungs bilaterally with occasional crackles. ABDOMEN: Soft, nontender with mild to moderate obesity. Bowel sounds present without any tenderness. EXTREMITIES: Without any acute edema. MUSCULOSKELETAL: Without any acute major deformities. VISIBLE SKIN: Limited area, no lesions or rashes. LABORATORY DATA: The CBC of 10/30/2017; WBC count 11.9, hemoglobin 11.7, hematocrit normal, platelet count were normal. PT/PTT on 10/30/2017 was noted as normal. CMP on 10/30/2017; BUN 26, creatinine 1.04, glucose 129, albumin 2.7. The chest x-ray 1 view, which was reviewed on PACS images noted pulmonary venous congestion without any gross pulmonary infiltration visible. CT scan of the chest, which was done without contrast yesterday completed and personally reviewed from the PACS images with the following findings of elevation of the right hemidiaphragm, large consolidation area noted in the right upper lobe posterior subsegment with patchy infiltration and opacity was noted in the right middle lobe and large consolidation noted in the left lower lobe as well as a left lingula. Small bilateral pleural fluids were seen. IMPRESSION: 1. The patient noted multilobar pneumonia with bilateral small pleural fluid with possible consideration of acute aspiration pneumonia. The etiology consideration of current pneumonia, which would be considered as healthcare-associated infection to be considered gram positive, gram negative from aspiration very likely. 2. Acute hypoxic respiratory failure secondary to the above. 3. History of Alzheimer dementia as well. 4. Past hospitalization acute respiratory failure after inguinal hernia repair. 5. Type 2 diabetes mellitus. PLAN OF MANAGEMENT: The patient already has a blood culture collected, which will be monitored. Sputum culture will be ordered. Discontinue the Rocephin and start the patient on intravenous antibiotics with the use of the vancomycin and the intravenous meropenem for coverage of the gram-positive, gram-negative and anaerobic infection. Assessment of the patient's speech would be advised to rule out any oropharyngeal dysphagia. Supportive therapy, plan of management [place], [place] REPORT OF CONSULTATION NAME: WILMA DIAZ UNIT #: [id number] ROOM: 526 DOCTOR: RUBY PARKER MD BIRTHDATE: [birth year] and care plan. Bronchodilator will be continued to help mobilize secretions. Usual care, other supportive therapy, plan of management and care plan. Usual treatment, other additional treatment changes will be done based on progression of the illness. Order the sputum for Gram stain culture as well. The patient's code status noted DNR for comfort care. No heroic measures for the patient. Resuscitation will be done based on the code status. Other additional treatment changes will be made for this patient based on the further progression of the illness. Overall, prognosis of the patient is noted guarded. Thanks for allowing me to participate in the care of this patient. RUBY ARANDA MD CM:CONSTR:REPORT OF CONSULTATION 1409 11/01/17 0234 interface
--- NOTE | ~2017-10-30 | PROC NOTE ---
[place], [place] PROCEDURE NOTE NAME: WILMA DIAZ UNIT #: [id number] ROOM: 526 DOCTOR: ROSI CLAY MD,RUBY BIRTHDATE: [birth year] DOS: 11/03/2017 PREOPERATIVE DIAGNOSES: The patient for the bronchoscopy is persistent cough and wheezing, exacerbation of bronchial asthma, and pneumonia. POSTOPERATIVE DIAGNOSES: Removal of mucus plugs, endobronchial tree bilaterally. COMPLICATIONS: None. BLOOD LOSS: None. ANESTHESIA: Local MAC. PROCEDURE DESCRIPTION: Informed consent obtained from the patient and family members. The patient was brought to the OR and placed in supine position. Conscious sedation administered by the Anesthesia Department. After achieving proper sedation, airway introduced into the mouth. Bronchoscope advanced into the airway into laryngeal area. Epiglottis and vocal cords were seen. Bronchoscope advanced to vocal cord and tracheal lumen. Tracheal lumen was identified and noted with moderate amount of mucoid secretions with small purulent secretions suctioned out to the berta level. Right upper, right lower, left upper, lingula, left lower lobe, right upper, right middle, right lower lobe opening were examined. Moderate impaction of the mucus plugs were present. The patient's bronchial tree subsegments bilaterally, which were cleared out with normal saline wash, sent for culture. Procedure was tolerated by the patient without any complications. Postoperative findings were discussed with the patient's daughter after the completion of procedure in the recovery room. RUBY ARANDA MD CM:PROCNOTE:PROCEDURE NOTE [id number] RUBY CLAY MD
--- NOTE | ~2017-10-30 | PR ---
[place], [place] PROGRESS NOTE NAME: WILMA DIAZ UNIT #: [id number] ROOM: 526 DOCTOR: HALLE CROWE MD BIRTHDATE: [birth year] DOS: 11/02/2017 SUBJECTIVE: The patient continues to improve, although she is completely confused today. PHYSICAL EXAM: GENERAL: Mental confusion, morbid obesity, and generalized weakness. VITAL SIGNS: Blood pressure 150/65, heart rate ranging between 63-111 beats per minute, breathing 18-24 times per minute, temperature 98 degrees Fahrenheit. HEENT: Pupils equal, round, and reactive to light. EOMI. There is no scleral icterus. NECK: C-spine is soft and supple, there is no meningismus. There is no cervical lymphadenopathy. LUNGS: Clear to auscultation bilaterally. There are no rales, wheezes or rhonchi. HEART: Regular rate and rhythm, no murmurs, clicks, rubs or gallops. ABDOMEN: Soft, nontender, nondistended. There are bowel sounds in all four quadrants. No rebound or guarding. EXTREMITIES: There is no peripheral cyanosis or edema. No focal swelling or erythema. NEURO: The patient moves all four extremities with 5/5 strength. Cranial nerves II - XII are intact. Normal gait. Alert and oriented SKIN: There is no apparent rash or petechiae. HEME/LYMPHATIC: There is no evidence of excessive bruising or lymphedema. PSYCHIATRIC: The patient does not appear anxious or depressed. IMPRESSION: 1. Hypoxemic respiratory failure because of congestive heart failure and bilateral pneumonic consolidation. The patient is being treated with IV Zosyn and also being diuresed with Bumex, which was started yesterday. Dr. Graham, the lab manager also following her and plans to take her for bronchoscopy. 2. Late onset Alzheimer's type dementia, mental confusion with suboptimal prognosis. The patient maintains a DNR-CC code status. 3. Mixed hyperlipidemia, treated and controlled. 4. Benign essential hypertension. Blood pressures are reasonably controlled. [place], [place] PROGRESS NOTE NAME: WILMA DIAZ UNIT #: [id number] ROOM: 526 DOCTOR: HALLE CROWE MD BIRTHDATE: [birth year] HALLE CROWE MD CM:CALLY [phone] HALLE CROWE MD 11/03/17 0337 interface
--- NOTE | ~2017-10-30 | PR ---
[place], [place] PROGRESS NOTE NAME: WILMA DIAZ UNIT #: [id number] ROOM: 526 DOCTOR: ROSI CLAY MDRUBY BIRTHDATE: [birth year] DOS: 11/01/2017 PULMONARY PROGRESS NOTE SUBJECTIVE: She has been noted comfortable at this time, not noted in any acute distress this morning of assessment. Cough has been noted modest, nonproductive with intermittent wheezing as well. The wheezing frequency and intensity has been decreased. There were no symptoms of chest pain reported. The patient is not having symptoms of headache or diplopia. She has been noted with dementia, unable to give me any history. The daughter of the patient and other family member present in the room, but the patient's review of systems cannot be accurately completed because of the patient's inability to communicate normally with history of dementia. OBJECTIVE: VITAL SIGNS: For the patient with a temperature normal, respiratory rate 20, heart rate 107-111, blood pressure 160/70-160/80. The pulse oxygen saturation 3 liters nasal cannula 96% saturation. HEENT: Head was atraumatic. Eyes nonicterus. NECK: Supple. CARDIOVASCULAR: S1, S2 audible. LUNGS: Noted without any crackles. The expiratory wheezing noted in the lungs bilaterally. ABDOMEN: Noted soft, nontender. Bowel sounds present. SKIN: Visible skin, no lesion or rash. EXTREMITIES: The patient noted without any acute edema, clubbing, cyanosis. MUSCULOSKELETAL: The patient was noted without any acute deformities. LABORATORY DATA: Blood culture of 10/30/2017 showed no bacterial growth. IMPRESSION: 1. The patient has been currently noted with acute pneumonia, lower lung base associated with small pleural fluid. 2. The patient with acute exacerbation of bronchial asthma as well and other debility. PLAN OF MANAGEMENT: The patient has been planned for bronchoscopy to be done on Friday morning because of severe coughing and inability to expectorate the sputum. I had discussion with the patient's daughter as well. The consent has been discussed and obtained from the patient's daughter. Continue in the meantime other therapy, plan of management, care plan of therapies and usual treatment. Supportive care, plan of management and therapies. [place], [place] PROGRESS NOTE NAME: WILMA DIAZ UNIT #: [id number] ROOM: 526 DOCTOR: RUBY PARKER MD BIRTHDATE: [birth year] RUBY ARANDA MD CM:CALLY [phone] RUBY CLAY MD 11/02/17 0023 interface
--- NOTE | ~2017-10-30 | PR ---
[place], [place] PROGRESS NOTE [id number] UNIT #: [id number] ROOM: 526 DOCTOR: HALLE CROWE MD BIRTHDATE: [birth year] DOS: 11/01/2017 SUBJECTIVE: The patient generally weak and confused, but otherwise asymptomatic. OBJECTIVE: VITAL SIGNS: Blood pressure 151/54, heart rate of 112 beats per minute, breathing 22 times per minute, temperature 98 degrees Fahrenheit. GENERAL APPEARANCE: The patient has mental confusion, generalized weakness, and morbid obesity. HEENT AND NECK: Exam within normal limits. CARDIOVASCULAR SYSTEM: Heart rate is regular in rate and rhythm. S1 and S2 normally audible. LUNGS: Clear to auscultation. ABDOMEN: Soft, nontender. No obvious organomegaly. Bowel sounds are present. EXTREMITIES: Without significant cyanosis or edema. IMPRESSION: 1. The patient with hypoxemic respiratory failure because of congestive heart failure and bilateral pneumonic consolidation. I will start the patient on IV Zosyn and also keep her on Bumex for diuresis and monitor her serum electrolytes on daily basis. Dr. Graham plans to take her for a bronchoscopy tomorrow. 2. Late onset Alzheimer's type dementia and mental confusion with suboptimal prognosis. The patient maintains a do not resuscitate comfort care code status. 3. Mixed hyperlipidemia, to be followed and treated. 4. Benign essential hypertension. Blood pressures to be monitored and controlled. HALLE CROWE MD CM:PNTRANS [phone] HALLE CROWE MD 11/02/17 0531 interface
--- NOTE | ~2017-10-30 | PR ---
[place], [place] PROGRESS NOTE NAME: WILMA DIAZ [facility] #: [id number] UNIT #: [id number] ROOM: 526 DOCTOR: RUBY PARKER MD BIRTHDATE: [birth year] DOS: 11/03/2017 PULMONARY PROGRESS NOTE SUBJECTIVE: She was noted with excessive severe cough at times for the patient, which is episodic. Denies symptoms of chest pain. She has not been able to give me accurate history because of history of dementia, history was given by the family members. She does not have symptoms of acute respiratory distress or shortness of breath this morning. She has not been noticed any symptoms of hemoptysis, fever or chills. The review of systems cannot be accurately completed because lack of direct verbal communication with the patient. She is n.p.o. past midnight. Bronchoscopy planned for today for the patient for assessment of persistent nonresolving cough. OBJECTIVE: GENERAL: The patient was currently comfortably lying in the bed without any acute distress this morning of assessment. VITAL SIGNS: Shows a normal temperature, respiratory rate of 24-18. Heart rate of 111-63, mild sinus tachycardia, blood pressure 150/65 to 140/48. Pulse oxygen saturation for the patient on 3-liter nasal cannula was recorded as 98% saturation. HEENT: Examination shows head was atraumatic. Eyes nonicterus. NECK: Supple. CARDIOVASCULAR: S1, S2 is audible. LUNGS: The patient was noted with moderate decreased breath sounds noted in the lungs bilaterally. Scattered expiratory wheezing. There were no crackles. ABDOMEN: Soft, nontender. Bowel sounds present, moderate obesity. EXTREMITIES: Without any acute edema. SKIN: Visible skin, no lesions or rashes. MUSCULOSKELETAL: No deformities. CENTRAL NERVOUS SYSTEM: No gross major focal neurologic deficit. Exam was limited. IMPRESSION: 1. The patient who has been noted comfortable at this time with respiratory symptom noted with nonresolving cough at the present time. Clear for bronchoscopy to be done today. 2. History of dementia. 3. Acute pneumonia for the patient with small bilateral pleural fluid. 4. Acute exacerbation of bronchial asthma. PLAN OF TREATMENT: Proceed with the bronchoscopy as planned for the patient after bronchoscopy, any modification of treatment to be needed and done accordingly. Continue current antibiotics. Continuation of bronchodilators for the patient at this time. Usual care, other supportive plan of management and therapy. Any additional treatment changes if necessary will be done after the bronchoscopy. [place], [place] PROGRESS NOTE [id number] UN[facility] #: [id number] ROOM: 526 DOCTOR: RUBY PARKER MD BIRTHDATE: [birth year] RUBY ARANDA MD CM:PNTRANS [phone] RUBY CLAY MD 11/04/17 0131 interface
--- NOTE | ~2017-10-30 | PR ---
[place], [place] PROGRESS NOTE NAME: WILMA DIAZ [facility] #: [id number] UNIT #: [id number] ROOM: 526 DOCTOR: BRENDON SOLER MD BIRTHDATE: [birth year] DOS: 11/04/2017 SUBJECTIVE: The patient is awake, taking her breathing treatment this morning, states that she feels good. OBJECTIVE: VITAL SIGNS: Blood pressure is 132/57, pulse of 92, respirations 20, and temperature 98.4. LUNGS: Diminished breath sounds, clear. HEART: Regular. ABDOMEN: Obese, soft, nontender. EXTREMITIES: Without any edema. ASSESSMENT AND PLAN: 1. Bilateral pneumonia with consolidation, possible gram-negative, on IV antibiotics. The patient is going to [facility] today after PICC line placement. 2. Urinary tract infection with Escherichia coli with ESBL, on meropenem. 3. Tracheomalacia with increased risk of pneumonia with normal modified barium swallow. 4. Possible diastolic congestive heart failure, which was treated with diuretics. The patient will have an echocardiogram this morning before discharge. BRENDON SOLER MD CM:PNTRANS [phone] BRENDON SOLER MD 11/13/17 0743 interface
--- NOTE | ~2017-10-30 | WRIGHTHP ---
[place], [place] PATIENT HISTORY AND PHYSICAL EXAM NAME: WILMA IDAZ [facility] #: [id number] UNIT #: [id number] ROOM: 526 DOCTOR: BRENDON SOLER MD BIRTHDATE: [birth year] DOS: 10/30/2017 HISTORY OF PRESENT ILLNESS: The patient is 87 years old. She is a resident of retirement, has been coughing and having increased chest congestion and hypoxemia for the last few hours at the retirement. The cough has been persistent for the last 2 weeks, has been treated with antibiotics and is not getting any better. She denies having any chest pains or palpitations; does not have any fever or chills, does not have any abdominal pain, nausea or emesis. PAST MEDICAL HISTORY: Significant for: 1. Tracheomalacia. 2. History of pneumonia. 3. Benign hypertension. 4. Adult failure to thrive. 5. Alzheimer dementia, late onset. 6. Mixed hyperlipidemia. 7. History of recent incarcerated right inguinal hernia, status post surgery with acute hypoxic respiratory failure. MEDICATIONS: She is currently on are vitamin D, B12, diclofenac, donepezil, lisinopril, Namenda, metformin, Cytotec, polyethylene glycol. SOCIAL HISTORY: Nonsmoker, does not use any alcohol. Resident of retirement. PHYSICAL EXAMINATION: GENERAL: She is awake and alert, oriented to person. Has a very moist sounding cough, unable to cough up any mucus. VITAL SIGNS: Blood pressure is 130/50, pulse of 60, respirations 20, temperature 97.7. LUNGS: Diminished breath sounds, few scattered rhonchi. HEART: Regular. ABDOMEN: Obese. EXTREMITIES: Without any edema. LABORATORY DATA: At the time of admission, lactic acid normal. Comprehensive glucose 129, BUN 26, creatinine 1.04. Electrolytes were normal. Protime 10.4, INR 1.0. WBC count is 11.9, hemoglobin 11.7, hematocrit 38.7. IMAGING: Chest x-ray, mild vascular congestion. CT of the chest showed bilateral pneumonia with consolidation. ASSESSMENT AND PLAN: 1. The patient with hypoxic respiratory failure, on oxygen supplementation. 2. Tracheomalacia with bilateral pneumonia and consolidation. Overall, prognosis is poor. Dr. Graham has been consulted for possible bronchoscopy. IV antibiotics have been started. 3. Alzheimer's dementia, late onset. Continue supportive care. [place], [place] PATIENT HISTORY AND PHYSICAL EXAM NAME: WILMA DIAZ UNIT #: [id number] ROOM: 526 DOCTOR: BRENDON SOLER MD BIRTHDATE: [birth year] BRENDON SOLER MD CM:HISPHYS:PATIENT HISTORY AND PHYSICAL EXAMINATION [phone] BRENDON SOLER MD 10/31/17 1110 interface
[~2017-10-30 12:03] MED LIST changes: -BUMETANIDE1 MG PO
[2017-10-30 12:21] VITALS: BP 131/55
[2017-10-30] MEDS ORDERED: DUONEB 3 MG/3 ML3 M1 INH (12:30)
[2017-10-30 13:27] LABS: HEMATOCRIT 38.7 % (37.0-47.0); HEMOGLOBIN 11.7 g/dl (12.0-16.0); MEAN CELL VOLUME 96.3 fl (81.0-99.0); MEAN CORPUSCULAR HGB 29.1 pg (27.0-31.0); MEAN CORPUSCULAR HGB CONC 30.2 g/dl (33.0-37.0); MEAN PLATELET VOLUME 10.7 fl (9.6-12.3); PLATELET COUNT AUTOMATED 285 10*3/uL (130-400); RED BLOOD COUNT 4.02 10*6/uL (4.10-5.10); RED CELL DISTRI WIDTH 13.6 % (0-14.5); WHITE BLOOD COUNT 11.9 10*3/uL (4.8-10.8)
[2017-10-30 13:43] LABS: ALBUMIN 2.7 gm/dl (3.1-4.5); ALKALINE PHOSPHATASE 88 U/L (45-117); BUN 26 mg/dl (7-24); CHLORIDE 104 mmol/L (98-107); CREATININE 1.04 mg/dL (0.55-1.02); LIPASE 212 U/L (73-393); POTASSIUM 4.4 mmol/L (3.5-5.1); SGOT/AST 15 IU/L (3-35); SGPT/ALT 17 U/L (12-78); SODIUM 140 mmol/L (136-145); TOTAL PROTEIN 6.7 gm/dL (6.4-8.2)
[2017-10-30 13:44] LABS: ACT PARTIAL THROMBO TIME 29.9 SECONDS (20.8-31.5); TROPONIN I < 0.015 ng/ml (<0.045)
[2017-10-30 13:46] LABS: PLATELET SUFFICIENCY NORMAL (NORMAL); TOTAL CELLS COUNTED 100 #CELLS
[2017-10-30 14:04] LABS: BILIRUBIN NEGATIVE (NEGATIVE); BLOOD TRACE-INTACT (NEGATIVE); CLARITY SL CLOUDY (CLEAR); COLOR YELLOW (YELLOW); GLUCOSE NEGATIVE (NEGATIVE); KETONE TRACE (NEGATIVE); LEUKO ESTERASE TRACE (NEGATIVE); NITRITE POSITIVE (NEGATIVE); SPECIFIC GRAVITY >= 1.030 (1.005-1.030)
[2017-10-30 14:05] VITALS: BP 111/50
[2017-10-30 14:29] LABS: BACTERIA 4+; MUCOUS TRACE; RBC 0-2 rbc/hpf (0-2); WBC 21-30 wbc/hpf (0-5)
[2017-10-30 19:12] VITALS: BP 150/47
[2017-10-30 21:26] VITALS: BP 137/51
[2017-10-31] VITALS: BP 130/50
[2017-10-31 08:00] VITALS: BP 176/88
[2017-10-31 12:00] VITALS: BP 160/72
[2017-10-31 16:53] VITALS: BP 154/92
[2017-10-31 20:28] VITALS: BP 143/63
[2017-11-01] VITALS: BP 160/80
[2017-11-01 08:15] VITALS: BP 160/70
[2017-11-01 12:19] VITALS: BP 141/55
[2017-11-01 16:04] VITALS: BP 151/54
[2017-11-01 20:00] VITALS: BP 130/56
[2017-11-02] VITALS: BP 140/48
[2017-11-02 08:00] VITALS: BP 150/65
[2017-11-02 16:09] VITALS: BP 160/66
[2017-11-02 20:14] VITALS: BP 146/76; BP 155/70
[2017-11-03] VITALS (7 sets, daily range): BP systolic 115–154; BP diastolic 36–90
[2017-11-04] VITALS: BP 132/57
[2017-11-04] MEDS ORDERED: BUMETANIDE1 MG PO (07:27)
[2017-11-04 08:00] VITALS: BP 152/64
[2017-11-04 12:00] VITALS: BP 150/82
[2017-11-04 15:04] LABS: ACID FAST SPEC PROCESSING Concentration (.)
[2017-12-15 14:05] LABS: ACID FAST CULTURE Negative (.)
== END 2017-11-04 14:01 | disposition other institution (70) | DRG 177 ==
LOC: ED 12:03 → 5E 15:07 → EDHOLD 15:07 → 5E 15:36
PROVIDERS: Internal Medicine Critical Care Medicine; Physician Assistant
PROC: BD11YZZ Fluoroscopy of Esophagus using Other Contrast (ICD-10-PCS; principal; 2017-10-31)
PROC: BD1BYZZ Fluoroscopy of Mouth/Oropharynx using Other Contrast (ICD-10-PCS; principal; 2017-10-31)
PROC: 0BC88ZZ Extirpation of Matter from Left Upper Lobe Bronchus, Via Natural or Artificial Opening Endoscopic (ICD-10-PCS; 2017-11-03)
PROC: 0BC58ZZ Extirpation of Matter from Right Middle Lobe Bronchus, Via Natural or Artificial Opening Endoscopic (ICD-10-PCS; 2017-11-03)
PROC: 0BCB8ZZ Extirpation of Matter from Left Lower Lobe Bronchus, Via Natural or Artificial Opening Endoscopic (ICD-10-PCS; 2017-11-03)
PROC: 0BC38ZZ Extirpation of Matter from Right Main Bronchus, Via Natural or Artificial Opening Endoscopic (ICD-10-PCS; 2017-11-03)
PROC: 0BC68ZZ Extirpation of Matter from Right Lower Lobe Bronchus, Via Natural or Artificial Opening Endoscopic (ICD-10-PCS; 2017-11-03)
PROC: 0BC98ZZ Extirpation of Matter from Lingula Bronchus, Via Natural or Artificial Opening Endoscopic (ICD-10-PCS; 2017-11-03)
PROC: 0BC78ZZ Extirpation of Matter from Left Main Bronchus, Via Natural or Artificial Opening Endoscopic (ICD-10-PCS; 2017-11-03)
PROC: 02HV33Z Insertion of Infusion Device into Superior Vena Cava, Percutaneous Approach (ICD-10-PCS; 2017-11-03)
PROC: 0BC18ZZ Extirpation of Matter from Trachea, Via Natural or Artificial Opening Endoscopic (ICD-10-PCS; 2017-11-03)
PROC: 0BC48ZZ Extirpation of Matter from Right Upper Lobe Bronchus, Via Natural or Artificial Opening Endoscopic (ICD-10-PCS; 2017-11-03)
DX: J15.6 Pneumonia due to other Gram-negative bacteria (principal); J96.01 Acute respiratory failure with hypoxia; I50.31 Acute diastolic (congestive) heart failure; G93.41 Metabolic encephalopathy; I13.0 Hypertensive heart and chronic kidney disease with heart failure and stage 1 through stage 4 chronic kidney disease, or unspecified chronic kidney disease; N30.00 Acute cystitis without hematuria; J45.901 Unspecified asthma with (acute) exacerbation; N18.3 Chronic kidney disease, stage 3 (moderate); G30.1 Alzheimer's disease with late onset; F02.80 Dementia in other diseases classified elsewhere, unspecified severity, without behavioral disturbance, psychotic disturbance, mood disturbance, and anxiety; E78.2 Mixed hyperlipidemia; E78.5 Hyperlipidemia, unspecified; Z96.643 Presence of artificial hip joint, bilateral; J39.8 Other specified diseases of upper respiratory tract; Z66 Do not resuscitate; Z51.5 Encounter for palliative care; M19.90 Unspecified osteoarthritis, unspecified site; B96.20 Unspecified Escherichia coli [E. coli] as the cause of diseases classified elsewhere; E66.9 Obesity, unspecified; Z90.710 Acquired absence of both cervix and uterus; Z90.49 Acquired absence of other specified parts of digestive tract; Z79.84 Long term (current) use of oral hypoglycemic drugs; Z82.49 Family history of ischemic heart disease and other diseases of the circulatory system; Z82.0 Family history of epilepsy and other diseases of the nervous system; Z80.9 Family history of malignant neoplasm, unspecified; Z79.899 Other long term (current) drug therapy; Z68.30 Body mass index [BMI] 30.0-30.9, adult

== ENCOUNTER 2018-06-27 11:42 | Inpatient (IN) | payer OTHER, MEDICARE, MEDICAID ==
[~2018-06-27] VITALS: Wt 81.6 kg
[2018-06-27] VITALS (7 sets, daily range): BP systolic 110–154; BP diastolic 43–88
--- NOTE | ~2018-06-27 | WRIGHTHP ---
[place], [place] PATIENT HISTORY AND PHYSICAL EXAM NAME: WILMA DIAZ [facility] #: [id number] UNIT #: [id number] ROOM: 526 DOCTOR: HALLE CROWE MD BIRTHDATE: [birth year] DOS: 06/27/2018 HISTORY OF PRESENT ILLNESS: The patient is an 88-year-old female with a past medical history of: 1. Pneumonia. 2. Diastolic type congestive heart failure, chronic. 3. Tracheomalacia. 4. Late onset Alzheimer's type dementia. 5. Osteoarthritis involving multiple joints. 6. Chronic kidney disease stage 3. 7. Old age and advanced adult failure to thrive. 8. Benign essential hypertension. The patient was brought over to the Emergency Department from senior care with declining in health and for end-of-life care. The patient was evaluated in the Emergency Department and suspected to have pneumonia and acute over chronic respiratory failure and recommended for admission under hospice care for comfort measures and end of life care. Also, the patient's family is available and present with the patient at this time. The patient unable to provide any history. The patient unresponsive and having difficulty with breathing, oxygen being given by facemask. REVIEW OF SYSTEMS: LUNGS: Increasing shortness of breath. GASTROINTESTINAL: No nausea, vomiting, diarrhea, constipation. The patient unable to eat at present time. CARDIOVASCULAR: No chest pain or palpitations. FAMILY HISTORY: Noncontributory. SOCIAL HISTORY: The patient does not smoke cigarettes. Denies any alcohol or drug abuse. FAMILY HISTORY: Noncontributory. HOME MEDICATIONS: DuoNeb, Bumex, vitamin D, vitamin B12, Aricept, lisinopril, memantine, metformin, MiraLax. ALLERGIES: No known drug allergies. PHYSICAL EXAMINATION: GENERAL: The patient unresponsive and some respiratory discomfort, obese. VITAL SIGNS: Blood pressure 154/68, heart rate of 93 beats per minute, breathing 24 times per minute, afebrile. LUNGS: Decreased breath sounds all over. The patient receiving oxygen by facemask. IMPRESSION AND PLAN: 1. The patient for end-of-life care under hospice with probable pneumonia and acute over chronic respiratory failure, to be treated with intravenous morphine, intravenous Ativan and atropine oral drops to keep her comfortable. I have [place], [place] PATIENT HISTORY AND PHYSICAL EXAM NAME: WILMA DIAZ UNIT #: [id number] ROOM: 526 DOCTOR: SEBASTIEN SHANKS,HALLE Browning BIRTHDATE: [birth year] started her on morphine infusion and situation was discussed with the family who were present in good detail and they agree with treatment. 2. Pneumonitis, increased shortness of breath. The patient's power of urology surgeon does not want treatment with antibiotics and the patient should not have any life prolonging measures. The patient's IV fluids will be discontinued and for the fluids, we will the keep venous line open for morphine and Ativan. No further labs will be performed. HALLE CROWE MD CM:HISPHYS:PATIENT HISTORY AND PHYSICAL EXAMINATION 30 31 HALLE CROWE MD 06/27/182231 interface
[~2018-06-27 11:42] MED LIST changes: +BUMETANIDE1 MG PO
--- NOTE | 2018-06-27 11:59 | NUR ---
PT DESAT'S TO 92% ON VENTURI MASK AT 50%, SWITCHED TO NRBM AT 100%/15L, POX HOLDING AT 97%.
--- NOTE | 2018-06-27 12:20 | NUR ---
[facility] NOW CALLS, STATES THEY WILL HAVE A NURSE COME TO EVAULATE THIS PT FOR HOSPICE SOON POSSIBLE. DR AND FAMILY MADE AWARE.
--- NOTE | 2018-06-27 12:57 | NUR ---
[facility] WILL COME WITHIN AN HOUR TO DO A REFERRAL AND SPEAK TO FAMILY. DR KNOTT REQUESTS THAT THE TRANSITION BETWEEN E.D. AND THE INPATIENT UNIT BE SHORT POSSIBLE AND ASKED ME TO HAVE [facility] [employer] CANDY MAKER ASSIST IN THIS. DONE.
--- NOTE | 2018-06-27 13:05 | NUR ---
HOSPICE NOW CALLS BACK, THEY WILL NOT BE ABLE TO COME UNTIL APPROXIMATELY 1430. DR AND FAMILY MADE AWARE.
--- NOTE | 2018-06-27 14:33 | NUR ---
HOSPICE NOW ARRIVES FOR PT EVALUATION. ADMISSION PENDING.
--- NOTE | 2018-06-27 15:06 | NUR ---
DR. KNOTT TOLD ME TO HOLD THE PATIENT IN THE ER FOR RIGHT NOW. FLOOR NURSE NOTIFIED.
--- NOTE | 2018-06-27 15:45 | NUR ---
Time: 1544 A 88 year old FEMALE admitted to under services of [facility]. APOORVA BANEGAS
--- NOTE | 2018-06-27 16:45 | NUR ---
SPOKE WITH DR. CROWE REGARDING ADMISSION ORDERS. HE STATED HE WOULD BE UP TO THE FLOOR TO PUT THEM IN.
--- NOTE | 2018-06-27 18:15 | NUR ---
SPOKE WITH DR. CROWE REGARDING ADMISSION ORDERS WHO STATED HE WOULD BE UP THE FLOOR SOON TO ENTER THEM. NO DISTRESS NOTED AT THIS TIME. PT RESTING COMFORTABLY WITH EYES CLOSED. 02 INTACT VIA VENTURI MASK. FAMILY AT THE BEDSIDE. IVF INFUSING PER ORDER.
--- NOTE | 2018-06-27 22:00 | NUR ---
16 FR [place] CATH INSERTED PER MD ORDER. PT TOLERATED PROCEDURE WELL.
--- NOTE | 2018-06-27 22:15 | NUR ---
PT AT 2214. VERIFIED BY THIS RN AND LOIS CABRERA RN. FAMILY AT BEDSIDE.
--- NOTE | 2018-06-27 22:26 | NUR ---
DR CROWE, [facility] NOTIFIED OF PT . CURRENTLY AWAITING RETURN CALL FROM [facility].
--- NOTE | 2018-06-27 23:04 | NUR ---
Due to within 24 hours of admission, [facility] [employer] Account[employer] Manager, Ramírez, notified of patient's . Case was reviewed. Body was released to go to the home of family's choice.
--- NOTE | 2018-06-28 00:33 | NUR ---
REP FROM [facility] HERE TO TRANSFER BODY. PT BODY TAKEN TO HOME.
== END 2018-06-27 22:15 | disposition expired | DRG 193 ==
LOC: ED 11:42 → EDHOLD 14:36 → 5E 14:36
PROVIDERS: ADMIT Internal Medicine
DX: J18.9 Pneumonia, unspecified organism (principal); J96.21 Acute and chronic respiratory failure with hypoxia; I13.0 Hypertensive heart and chronic kidney disease with heart failure and stage 1 through stage 4 chronic kidney disease, or unspecified chronic kidney disease; I50.32 Chronic diastolic (congestive) heart failure; Z51.5 Encounter for palliative care; Z66 Do not resuscitate; F03.90 Unspecified dementia, unspecified severity, without behavioral disturbance, psychotic disturbance, mood disturbance, and anxiety; E78.00 Pure hypercholesterolemia, unspecified; N18.3 Chronic kidney disease, stage 3 (moderate); Z96.643 Presence of artificial hip joint, bilateral; M19.90 Unspecified osteoarthritis, unspecified site; Z90.49 Acquired absence of other specified parts of digestive tract; Z90.710 Acquired absence of both cervix and uterus; Z82.49 Family history of ischemic heart disease and other diseases of the circulatory system; Z82.0 Family history of epilepsy and other diseases of the nervous system; Z87.19 Personal history of other diseases of the digestive system; Z87.440 Personal history of urinary (tract) infections; Z80.9 Family history of malignant neoplasm, unspecified